=== PATIENT | male | born 1950 | race Caucasian/White ===

== ENCOUNTER 2019-05-11 00:10 | Inpatient (IN) | payer OTHER ==
[2019-05-11] VITALS (69 sets, daily range): BP systolic 49–123; BP diastolic 19–71
[~2019-05-11] VITALS: Ht 180.3 cm; Wt 78.8 kg
--- NOTE | 2019-05-11 00:20 | NUR ---
EMS STATED THAT IV IN RAC INFILTRATED. SITED IS COOL W/ MODERATE FLOOD INFILTRATION TO R LOWER ARM.
[2019-05-11 00:31] LABS: HEMATOCRIT 29.3 % (42.0-52.0); HEMOGLOBIN 9.5 gm/dL (14.0-18.0); MCH 28.8 pg (26.0-34.0); MCHC 32.3 g/dL (28.0-37.0); MCV 89.2 fL (80.0-100.0); PLATELET COUNT 208 thou/uL (150-400); RBC 3.29 mil/uL (4.50-6.00); WBC 20.2 thou/uL (4.0-11.0)
[2019-05-11 00:50] LABS: ANION GAP 13 mmol/L (7-16); BUN 33 mg/dL (7-18); CALCIUM 7.8 mg/dL (8.5-10.1); CHLORIDE 109 mmol/L (98-107); CO2 22 mmol/L (21-32); CREATININE 2.4 mg/dL (0.7-1.3); GLUCOSE 155 mg/dL (74-106); POTASSIUM 4.4 mmol/L (3.5-5.1); SODIUM 144 mmol/L (136-145)
[2019-05-11 00:58] LABS: TROPONIN-I <0.06 ng/mL (<0.06)
[2019-05-11 01:01] LABS: APTT 24.8 Seconds (24.5-32.8); INR 1.2; PROTIME 12.5 Seconds (9.3-11.4)
[2019-05-11 01:09] LABS: ABSOLUTE NEUTROPHILS 16.2 thou/uL (1.4-8.2)
--- NOTE | 2019-05-11 01:48 | NUR ---
NS running at 250 ml/hr per Dr. Vo
[2019-05-11 02:39] LABS: HEMATOCRIT 25.8 % (42.0-52.0); HEMOGLOBIN 8.4 gm/dL (14.0-18.0)
[2019-05-11 02:47] LABS: ALBUMIN 2.6 g/dL (3.4-5.0); DIRECT BILIRUBIN 0.1 mg/dL (<0.1-0.3); TOTAL BILIRUBIN 0.7 mg/dL (<0.1-1.0); TOTAL PROTEIN 5.5 g/dL (6.4-8.2)
--- NOTE | 2019-05-11 03:41 | NUR ---
ADMIT NOTE: Pt admitted to ICU room 239 from ED for GI bleed and hypotension. Alert and oriented x 4, KAUFFMAN, pupils LOU. Abdomen flat, soft, non-tender, bowel sounds hypoactive. On O2 at 2L per canula, sat 98-100%. On levophed at 10 mcg/min, SBP 80-100 with MAP > 60. Pt arrived at 0300; blood transfusion started at 0330 and progressing without complication.
[2019-05-11 06:44] LABS: CALCIUM 7.8 mg/dL (8.5-10.1); CREATININE 2.3 mg/dL (0.7-1.3); POTASSIUM 4.9 mmol/L (3.5-5.1)
--- NOTE | 2019-05-11 08:00 | EKG ---
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1950 Requested By: Rajinder Vo Order Number: [id number] MD: Adalberto Leon Measurements Intervals [place] Rate: 86 P: 69 NE: 167 QRS: -81 QRSD: 114 T: 91 QT: 399 QTc: 478 Interpretive Statements Sinus rhythm Borderline IVCD with LAD Inferior infarct, old Anterolateral infarct, age indeterminate No previous ECG available for comparison Electronically Signed On 05-11-2019 8:00:37 CDT by Adalberto Leon [email or web address] <ELECTRONICALLY SIGNED> By: Adalberto Leon MD, [facility] 05/11/19 08 1 011 Adalberto Leon MD, FACC /EPI
--- NOTE | 2019-05-11 11:37 | NUR ---
DROWSY BUT EASILY AROUSABLE, WHEN AWAKE IS ORIENTED AND HAS DENIED PAIN. VITALS STABLE AND WEANING DOWN LEVO BP TOLERATES. SMALL BLOODY EMESIS EARLY THIS MORNING. KEPT NPO. DAUGHTER AND SON CAME BY AND WERE UPDATED. PATIENT TAKEN TO GI LAB FOR EGD AT 1130 ACCOMPANIED BY GI RN AND BOTH SON AND DAUGHTER
--- NOTE | 2019-05-11 13:32 | NUR ---
BACK IN ICU AT 1300, ON THE VENT. OGT INSERTED AND CXR COMPLETED. CONSULT CALLED TO DR. JACKSON FOR VENT MANAGEMENT.
[2019-05-11 14:02] LABS: URINE BILIRUBIN NEGATIVE (Negative); URINE BLOOD 1+ (Negative); URINE CLARITY CLEAR; URINE COLOR YELLOW; URINE GLUCOSE-RANDOM* NEGATIVE (Negative); URINE KETONES NEGATIVE (Negative); URINE LEUKOCYTES-REFLEX TRACE (Negative); URINE NITRITE-REFLEX NEGATIVE (Negative); URINE PROTEIN (DIPSTICK) 1+ (Negative); URINE SPECIFIC GRAVITY 1.015 (1.005-1.035); URINE UROBILINOGEN 0.2 E.U./dl (0.2-1.0)
[2019-05-11 14:11] LABS: BACTERIA-REFLEX None Seen /HPF (None Seen); CRYSTALS None Seen /LPF (None Seen); FINE GRANULAR CASTS 0-3 Few /LPF (None Seen); HYALINE CASTS 0-3 Few /LPF (None Seen); SQUAMOUS 0-3 Few /LPF (0-3); URINE RBC 0-2 Rare /HPF (0-2)
[2019-05-11 15:06] LABS: BE(vivo) -3.5 mmol/L (-2 to +3); HCO3 21.4 mmol/L (22.0-26.0); PCO2 38.3 mmHg (35.0-45.0); PO2 240.9 mmHg (80.0-100.0); pH 7.366 (7.360-7.450); sO2 99.5 % (92.0-98.0)
--- NOTE | 2019-05-11 16:34 | NUR ---
INITIAL ASSESSMENT: Pt evaluated for d/c planning needs. Reviewed chart and spoke with nurse. Pt is currently on the ventilator. Pt has daughter and son, who were at bedside prior to intubation. Will follow up with pt/family prior to d/c.
[2019-05-12] VITALS (37 sets, daily range): BP systolic 76–143; BP diastolic 43–83
--- NOTE | 2019-05-12 05:28 | NUR ---
END OF SHIFT SUMMARY: Pt has remained stable this shift. No stool. Minimal dark reddish brown drainage from OG. Monitor sinus zach most of shift, rates 40-55. Remains sedated on propofol, which has been titrated down to 13 mcg/kg/min. Remains on levophed drip to keep MAP > 60. Levophed titrated down to 4 mcg/min this shift. Urine output remains adequate (600 cc this shift).
[2019-05-12 05:46] LABS: HEMATOCRIT 24.9 % (42.0-52.0); HEMOGLOBIN 8.3 gm/dL (14.0-18.0); MCH 29.5 pg (26.0-34.0); MCHC 33.4 g/dL (28.0-37.0); MCV 88.5 fL (80.0-100.0); RBC 2.81 mil/uL (4.50-6.00); RDW 14.6 % (10.5-14.5); WBC 15.9 thou/uL (4.0-11.0)
[2019-05-12 05:58] LABS: CREATININE 1.6 mg/dL (0.7-1.3); POTASSIUM 4.5 mmol/L (3.5-5.1)
--- NOTE | 2019-05-12 08:12 | NUR ---
PT HAD EGD YESTERDAY AND WAS INTUBATED TO PROTECT AIRWAY AND REMAINS ON VENT. DUODENAL ULCER WITH CLOT NOTED, CONCERN FOR MALIGNANCY AND OBTAINED BX AND INJECTED WITH EPI. ON PRESSORS FOR BP SUPPORT. PLAN FOR SERIAL H/H AND WILL NEED ANOTHER EGD PER GI PLAN.
[2019-05-12 09:56] LABS: HEMATOCRIT 25.9 % (42.0-52.0); HEMOGLOBIN 8.7 gm/dL (14.0-18.0)
--- NOTE | 2019-05-12 10:00 | NUR ---
Nutrition: Consider change IVFs to Clinimix PPN with 250 mL 20% lipids MWF to to meet 54-100% of needs til POC determined. Pt severely malnourished.
--- NOTE | 2019-05-12 13:59 | PATH ---
[facility] [address] [place] [address] PATHOLOGY RPT PROCEDURE Name: RICKEY TREVIZO Room #: 239-P [facility] IN M.R.#: [id number] Admission: 05/11/19 Date of : 50 Discharge: Report #: [id number] Path Case #: [id number] [facility] Accession Number: [id number] . 01 Material submitted: . duodenum - BX OF DUODENUM ULCER . 01 Clinical history: . Duodenal ulcer, hematemesis . 02 Diagnosis: Small bowel, "duodenal ulcer", biopsy: - Duodenal mucosa with moderate acute and chronic inflammation and focal ulcer with associated acute ulcer exudate. (SKM:esther; 05/12/2019) QMS/05/12/2019 . 02 Electronically signed: . Sam Sewell MD, Pathologist NPI- [id number] . 01 Gross description: . The specimen is received in formalin, labeled "Ra, Rickey, BX of duodenal ulcer", are few irregular fragments of silva soft tissue measuring 0.5 x 0.5 x 0.2 cm in aggregate. Entirely submitted in A1. (SWS; 05/11/2019) SHS/SHS . 02 Pathologist provided ICD-10: K29.80, K26.9 . 02 CPT . 337290 Specimen Comment: A courtesy copy of this report has been sent to Specimen Comment: [phone], . Specimen Comment: Report sent to / DR STONER Performed at: [address], [place], [place] [id number] MD Dillan Martinez MD Phone: [phone] Performed at: [address] [id number] MD Briseyda Camejo MD Phone: [phone]
[2019-05-12 14:20] LABS: BE(vivo) -5.9 mmol/L (-2 to +3); HCO3 18.8 mmol/L (22.0-26.0); PCO2 33.6 mmHg (35.0-45.0); PO2 79.4 mmHg (80.0-100.0); pH 7.365 (7.360-7.450); sO2 95.5 % (92.0-98.0)
[2019-05-13] VITALS (67 sets, daily range): BP systolic 51–164; BP diastolic 11–139
[2019-05-13 05:27] LABS: HEMATOCRIT 23.5 % (42.0-52.0); HEMOGLOBIN 7.8 gm/dL (14.0-18.0); MCH 29.4 pg (26.0-34.0); MCHC 33.3 g/dL (28.0-37.0); MCV 88.5 fL (80.0-100.0); RBC 2.65 mil/uL (4.50-6.00); RDW 14.6 % (10.5-14.5); WBC 21.2 thou/uL (4.0-11.0)
[2019-05-13 05:44] LABS: CALCIUM 7.7 mg/dL (8.5-10.1); CREATININE 1.1 mg/dL (0.7-1.3); POTASSIUM 4.2 mmol/L (3.5-5.1)
--- NOTE | 2019-05-13 06:20 | NUR ---
PATIENT ALERT AND ORIENTED X4, PAIN CONTROLLED WITH MEDICATION. ON 2L NASAL CANNULA, BASS PATENT AND DRAINING. ON BLOOD PRESSURE SUPPORT TO KEEP MAP ABOVE 60. NO SIGNIFICANT EVENTS OVER NIGHT. PATIENT RESTED COMFORTABLY. NO SIGNS OF ACUTE DISTRESS NOTED AT THIS TIME. WILL CONTINUE TO MONITOR.
--- NOTE | 2019-05-13 11:26 | NUR ---
VASCULAR ACCESS PLACED 5FRTLPICC FOR GI BLEED IN ICU, PLEASE SEE INSERTION NOTE FOR DETAILS
--- NOTE | 2019-05-13 11:40 | NUR ---
PT BECAME COOL , CLAMY AND DIAPHORETIC. KNOWS HIS NAME BUT PRIOR WAS TALKING WITH STAFF. NOT RESPONDING WITH NURSING STAFF. FLUIDS INFUSING. AND LEVO AT 16MG. WEAK PULSE AND BLOOD PRESSURE DROPING. FLUIDS INFUSING. CODE BUTTON CALLED AND STAFF CAME. PT STARTING VOMITING BLOOD AND CLOTS. PLACED NG TUBE WITH ICE WATER LAVAGE. AT THIS TIME. AND INTUBATION DONE PER AND ADDED EPINEPHRINE, VASOPRESSIN, VERONIKA SYNEPHRINE FOR STABILIZATION. FLUIDS INFUSING. FAMIY PRESENT. GI TOOK PT TO IR WITH STAFF. FAMILY ACCOMPANYING PT FOR SUPPORT. ONGOING NURSING SUPPORT REQUIRED AT THIS TIME. MORE BLOOD PRODUCTS ON HOLD IN THE BLOOD BANK FOR PT BLEEDING.
[2019-05-13 11:50] LABS: BE(vivo) -8.2 mmol/L (-2 to +3); HCO3 17.1 mmol/L (22.0-26.0); PCO2 33.7 mmHg (35.0-45.0); PO2 217.3 mmHg (80.0-100.0); sO2 99.4 % (92.0-98.0)
[2019-05-13 11:51] LABS: pH 7.323 (7.360-7.450)
[2019-05-13 12:22] LABS: RBC 1.59 mil/uL (4.50-6.00)
[2019-05-13 12:23] LABS: MCH 29.2 pg (26.0-34.0); MCHC 31.8 g/dL (28.0-37.0); MCV 91.6 fL (80.0-100.0); PLATELET COUNT 136 thou/uL (150-400); RDW 14.7 % (10.5-14.5); WBC 20.6 thou/uL (4.0-11.0)
[2019-05-13 12:26] LABS: HEMATOCRIT 14.6 % (42.0-52.0); HEMOGLOBIN 4.7 gm/dL (14.0-18.0)
[2019-05-13 12:33] LABS: INR 1.4; PROTIME 14.9 Seconds (9.3-11.4)
[2019-05-13 13:00] LABS: ABSOLUTE NEUTROPHILS 14.4 thou/uL (1.4-8.2); METAMYELOCYTES 1 %; PLATELET ESTIMATE NORMAL
[2019-05-13 14:53] LABS: WBC 14.1 thou/uL (4.0-11.0)
[2019-05-13 14:56] LABS: HEMATOCRIT 20.2 % (42.0-52.0); MCH 30.4 pg (26.0-34.0); RBC 2.07 mil/uL (4.50-6.00); RDW 16.2 % (10.5-14.5)
[2019-05-13 14:59] LABS: HEMOGLOBIN 6.3 gm/dL (14.0-18.0)
[2019-05-13 15:32] LABS: ABSOLUTE NEUTROPHILS 7.5 thou/uL (1.4-8.2); METAMYELOCYTES 4 %; MYELOCYTES 1 %; NUCLEATED RBCS 3 /100WBC
[2019-05-13 15:33] LABS: ANISOCYTOSIS 1+; BURR CELLS 3+; PLATELET COUNT 56 thou/uL (150-400)
[2019-05-13 16:00] LABS: HCO3 7.3 mmol/L (22.0-26.0); PCO2 39.7 mmHg (35.0-45.0); PO2 310.9 mmHg (80.0-100.0); pH 6.882 (7.360-7.450); sO2 99.3 % (92.0-98.0)
[2019-05-13 17:45] LABS: HEMATOCRIT 30.8 % (42.0-52.0); MCH 30.7 pg (26.0-34.0); MCV 93.1 fL (80.0-100.0); PLATELET COUNT 58 thou/uL (150-400); RDW 14.9 % (10.5-14.5); WBC 13.8 thou/uL (4.0-11.0)
[2019-05-13 17:46] LABS: HEMOGLOBIN 10.1 gm/dL (14.0-18.0)
[2019-05-13 18:14] LABS: INR 1.7
[2019-05-13 18:16] LABS: ABSOLUTE NEUTROPHILS 10.4 thou/uL (1.4-8.2); ANISOCYTOSIS 1+; METAMYELOCYTES 1 %; NUCLEATED RBCS 3 /100WBC; POLYCHROMASIA OCCASIONAL
[2019-05-13 18:18] LABS: APTT > 198.4 Seconds (24.5-32.8)
[2019-05-13 18:38] LABS: BE(vivo) -11.3 mmol/L (-2 to +3); HCO3 15.3 mmol/L (22.0-26.0); PCO2 37.3 mmHg (35.0-45.0); PO2 69.6 mmHg (80.0-100.0); pH 7.232 (7.360-7.450)
[2019-05-13 23:23] LABS: HEMATOCRIT 26.7 % (42.0-52.0); HEMOGLOBIN 9.2 gm/dL (14.0-18.0); MCH 30.3 pg (26.0-34.0); MCHC 34.3 g/dL (28.0-37.0); MCV 88.2 fL (80.0-100.0); PLATELET COUNT 51 thou/uL (150-400); RBC 3.03 mil/uL (4.50-6.00); RDW 14.8 % (10.5-14.5); WBC 13.1 thou/uL (4.0-11.0)
[2019-05-13 23:26] LABS: CALCIUM 6.2 mg/dL (8.5-10.1); CREATININE 1.7 mg/dL (0.7-1.3)
[2019-05-14] VITALS (95 sets, daily range): BP systolic 74–134; BP diastolic 42–76
[2019-05-14 00:01] LABS: ABSOLUTE NEUTROPHILS 11.5 thou/uL (1.4-8.2); ANISOCYTOSIS 1+; NUCLEATED RBCS 5 /100WBC; PLATELET ESTIMATE DECREASED
[2019-05-14 00:02] LABS: POIKILOCYTOSIS 1+; POLYCHROMASIA 2+
[2019-05-14 03:21] LABS: HEMATOCRIT 25.6 % (42.0-52.0); HEMOGLOBIN 8.7 gm/dL (14.0-18.0); MCH 30.2 pg (26.0-34.0); MCHC 34.1 g/dL (28.0-37.0); MCV 88.7 fL (80.0-100.0); RBC 2.89 mil/uL (4.50-6.00); RDW 14.7 % (10.5-14.5); WBC 12.5 thou/uL (4.0-11.0)
[2019-05-14 03:32] LABS: CALCIUM 6.1 mg/dL (8.5-10.1); CREATININE 1.9 mg/dL (0.7-1.3)
[2019-05-14 03:35] LABS: INR 1.4; PROTIME 14.3 Seconds (9.3-11.4)
[2019-05-14 05:29] LABS: BE(vivo) -6.2 mmol/L (-2 to +3); HCO3 19.5 mmol/L (22.0-26.0); PCO2 39.8 mmHg (35.0-45.0); sO2 96.4 % (92.0-98.0)
[2019-05-14 05:30] LABS: pH 7.309 (7.360-7.450)
--- NOTE | 2019-05-14 06:25 | NUR ---
RECEIVED REPORT AND ASSUMED PATIENT CARE AT 1900. PATIENT GIVEN 1 BAG OF FFP AND 1 BAG OF PLATELETS AT THE START OF SHIFT. PATIENT NOTED TO BE ON LEVOPHED, EPINEPHRINE, AND VASOPRESSIN. PATIENT ALSO NOTED TO BE ON PROPOFOL AND PRECEDEX. PATIENT AWAKENS EASILY TO VERBAL AND TACTILE STIMULI AND FOLLOWS COMMANDS APPROPRIATELY. FAMILY AT BEDSIDE AND UPDATED ON CARE PLAN. PATIENT HAD 2 LARGE MAROON COLORED BM'S. NOTIFIED DR. JONES AND RECEIVED ORDERS AND PARAMETERS FOR FURTHER TRANSFUSIONS OF PRBC, FFP, AND PLATELETS. PATIENT HGB IS TRENDING DOWN, BUT DID NOT REQUIRE ANY ADDITIONAL BLOOD PRODUCTS DURING THIS SHIFT. NO OTHER ACUTE EVENTS OCCURRED DURING THIS SHIFT. THE VASOPRESSORS MAINTAINED AN ADEQUATE BP AND THIS RN WAS ABLE TO TITRATE THEM DOWN.
--- NOTE | 2019-05-14 08:39 | EKG ---
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
--- NOTE | 2019-05-14 09:04 | NUR ---
With change in medical status 05/13, would now consider start TPN once pt is stable. High risk for refeeding syndrome given malnutrition. Suggest 5%AA, 15% dex to start low rate 30ml/hr, no lipids.
[2019-05-14 09:47] LABS: HEMATOCRIT 21.6 % (42.0-52.0); HEMOGLOBIN 7.5 gm/dL (14.0-18.0); MCH 30.5 pg (26.0-34.0); MCHC 34.7 g/dL (28.0-37.0); MCV 87.9 fL (80.0-100.0); RBC 2.46 mil/uL (4.50-6.00); RDW 14.9 % (10.5-14.5); WBC 11.4 thou/uL (4.0-11.0)
[2019-05-14 12:49] LABS: CREATININE 2.2 mg/dL (0.7-1.3)
[2019-05-14 12:51] LABS: CALCIUM 5.8 mg/dL (8.5-10.1)
[2019-05-14 13:16] LABS: ALBUMIN 1.5 g/dL (3.4-5.0); DIRECT BILIRUBIN 0.2 mg/dL (<0.1-0.3); TOTAL BILIRUBIN 0.4 mg/dL (<0.1-1.0); TOTAL PROTEIN 3.8 g/dL (6.4-8.2)
[2019-05-14 15:30] LABS: ABSOLUTE NEUTROPHILS 11.3 thou/uL (1.4-8.2); BASOPHILS 0.4 % (0.0-2.0); EOSINOPHILS 0.2 % (0.0-3.0); HEMATOCRIT 26.1 % (42.0-52.0); HEMOGLOBIN 8.9 gm/dL (14.0-18.0); LYMPHOCYTES 8.6 % (24.0-44.0); MCH 30.2 pg (26.0-34.0); MCV 88.8 fL (80.0-100.0); MONOCYTES 5.5 % (1.0-8.0); POLYS 85.3 % (36.0-66.0); RBC 2.94 mil/uL (4.50-6.00); RDW 15.2 % (10.5-14.5); WBC 13.3 thou/uL (4.0-11.0)
[2019-05-14 15:58] LABS: BE(vivo) -8.1 mmol/L (-2 to +3); HCO3 16.8 mmol/L (22.0-26.0); PCO2 32.3 mmHg (35.0-45.0); PO2 108.9 mmHg (80.0-100.0); pH 7.335 (7.360-7.450); sO2 97.8 % (92.0-98.0)
[2019-05-14 15:58] LABS: PLATELET COUNT 70 thou/uL (150-400)
--- NOTE | 2019-05-14 17:00 | NUR ---
PT IS AWAKE REMAINS ON THE VENT ON SEDATION OF PROPOFOL. FAMILY AT BEDSIDE FOR SUPPORT. SUCTIONED MODERSTAE CLEAR SECREATIONS. LUNGS ARE DIMINISHED. ABDOMEN IS SOFT AND FLAT BOWEL SOUNDS ARE HYPOACTIVE X4. REMAINS ON LEVO DRIP. BLOOD PRESSURE IS STABLE. CLEAN PT UP OF A BM DRARK BLACK STOOL NOTED. BEAR HUGER ON FOR TEMPERATURE TODAY. PROTONIX DRIP REMAINS ON PT. OXYGEN SATURATION IS 97 PERCENT ON THE VENT. WILL CONTINUE TO ASSESS AND MONITOR. PT STATUS PER NURSING.
[2019-05-14 21:43] LABS: HEMOGLOBIN 8.4 gm/dL (14.0-18.0); MCH 30.3 pg (26.0-34.0); MCHC 33.7 g/dL (28.0-37.0); RBC 2.78 mil/uL (4.50-6.00); RDW 15.6 % (10.5-14.5); WBC 14.8 thou/uL (4.0-11.0)
[2019-05-15] VITALS (90 sets, daily range): BP systolic 77–134; BP diastolic 42–117
[2019-05-15 06:01] LABS: HEMATOCRIT 22.6 % (42.0-52.0); HEMOGLOBIN 7.8 gm/dL (14.0-18.0); MCH 30.7 pg (26.0-34.0); MCHC 34.4 g/dL (28.0-37.0); MCV 89.3 fL (80.0-100.0); RBC 2.53 mil/uL (4.50-6.00); RDW 15.5 % (10.5-14.5); WBC 12.7 thou/uL (4.0-11.0)
[2019-05-15 06:06] LABS: ALBUMIN 1.4 g/dL (3.4-5.0); CALCIUM 6.4 mg/dL (8.5-10.1); CREATININE 2.8 mg/dL (0.7-1.3); PHOSPHORUS 2.7 mg/dL (2.5-4.9); POTASSIUM 3.7 mmol/L (3.5-5.1)
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
--- NOTE | 2019-05-15 14:35 | NUR ---
FAXED FACE SHEET TO [employer] TO HELP WITH MEDICAID APPLICATION RECEIVED CONFIRMATION.
--- NOTE | 2019-05-15 19:15 | NUR ---
Pt lightly sedated with Propofol but is responsive and able to follow commands. Medicated twice for pain this shift with adequate pain control. Maintained on the vent with no weaning today. Dr Simons did bronchoscopy at bedside this morning. Procedure was brief-see procedure report. Sinus rhythm. Levophed gtt titrated for BP support. One unit of PRBC transfused. Two dark blackish liquid stools today. Pt is NPO. Adequate urine output. One time dose of Lasix was given. Daughter at bedside much of the day. Report given to RN assuming care.
[2019-05-15 21:00] LABS: HEMATOCRIT 25.6 % (42.0-52.0); HEMOGLOBIN 8.8 gm/dL (14.0-18.0)
[2019-05-16] VITALS (87 sets, daily range): BP systolic 74–146; BP diastolic 39–79
--- NOTE | 2019-05-16 04:38 | NUR ---
ASSUMED CARE OF PT. AT 1900. PT. IS LIGHTLY SEDATED, BUT CAN STILL NOD TO Y/N QUESTIONS. HAS HAD SOME PAIN THROUGHOUT THE NIGHT. MODERATE AMOUNT OF SECRETIONS. AFEBRILE. OXYGENATION MAINTAINED WITH VENTILATOR. NSR ON MONITOR. 7 BEAT RUN OF VTACH. ADEQUATE URINARY OUTPUT. 1 BLACK/ BROWN BM SO FAR THIS SHIFT. HGB OF 8.8 AT 2030, NO BLOOD GIVEN, ON MASS TRANSFUSION PROTOCOL. TURNED Q2H, SKIN WARM, DRY, INTACT. ASSESSMENTS AND VITAL SIGNS CHARTED. CONTINUE TO FOLLOW POC. WILL CONTINUE TO MONITOR.
[2019-05-16 05:06] LABS: BE(vivo) -6.1 mmol/L (-2 to +3); HCO3 19.3 mmol/L (22.0-26.0); PCO2 37.8 mmHg (35.0-45.0); PO2 116.6 mmHg (80.0-100.0)
[2019-05-16 05:07] LABS: pH 7.327 (7.360-7.450)
[2019-05-16 05:26] LABS: HEMATOCRIT 25.2 % (42.0-52.0); HEMOGLOBIN 8.9 gm/dL (14.0-18.0); MCH 31.4 pg (26.0-34.0); MCHC 35.2 g/dL (28.0-37.0); MCV 89.2 fL (80.0-100.0); RBC 2.83 mil/uL (4.50-6.00); RDW 14.9 % (10.5-14.5); WBC 10.4 thou/uL (4.0-11.0)
[2019-05-16 05:41] LABS: ALBUMIN 1.4 g/dL (3.4-5.0); CALCIUM 6.6 mg/dL (8.5-10.1); CREATININE 3.3 mg/dL (0.7-1.3); POTASSIUM 3.2 mmol/L (3.5-5.1); TOTAL BILIRUBIN 0.7 mg/dL (<0.1-1.0); TOTAL PROTEIN 4.3 g/dL (6.4-8.2)
--- NOTE | 2019-05-16 10:51 | NUR ---
0800-Pt was light sedation status. Propofol @20mcg/kg/min. Levopad @9.09. Protonix @8mg/hr. Afebrile. Pt followed commands appropriately. Pt sqeezed this nurse's fingers. Pupils reacted briskly, equally. Pt denied pain during assessment. Soft wrist x 2. RT changed FiO2 from 40 to 30 @0740. Coarse LS. Edema on UE, LE, melanie.RSr's' (Notched QRS, narrow though) on heart monitor. BP 100s w/ Levopad. Gauthier in place. Daughter was at bedside.
[2019-05-16 18:00] LABS: HEMATOCRIT 23.8 % (42.0-52.0); HEMOGLOBIN 8.1 gm/dL (14.0-18.0); MCH 30.5 pg (26.0-34.0); MCHC 33.9 g/dL (28.0-37.0); MCV 89.9 fL (80.0-100.0); RBC 2.64 mil/uL (4.50-6.00); RDW 15.2 % (10.5-14.5); WBC 7.7 thou/uL (4.0-11.0)
--- NOTE | 2019-05-16 19:31 | NUR ---
1920-Called DITCH CLEANERHarsh re massive transfusion protocol since pt's Hgb 8.1 from 8.9. DITCH CLEANER told this nurse to monitor overnight for active bleeding and check CBC tomorrow morning. This nurse confirmed the massive transfusion protocol was held as of 05/15 from order hx.
[2019-05-17] VITALS (165 sets, daily range): BP systolic 62–141; BP diastolic 33–89
--- NOTE | 2019-05-17 04:35 | NUR ---
ASSUMED CARE OF PT. AT 1900. PT. IS LIGHTLY SEDATED WITH PROPOFOL, CAN NOD TO Y/N QUESTIONS. DENIES PAIN. VSS. NSR WITH BBB ON MONITOR. MAINTAINS OXYGENATION WITH VENTILATOR. POSSIBLE CPAP TRIAL TODAY. 1 BLACK, DARK MARROON SMALL BM. ADEQUATE URINARY OUTPUT. NO INCREASE IN EDEMA. ASSESSMENTS AND VITAL SIGNS CHARTED. MEDICATION TITRATION CHARTED. FOLLOW POC. WILL CONTINUE TO MONITOR.
[2019-05-17 05:23] LABS: HEMATOCRIT 25.7 % (42.0-52.0); MCH 31.1 pg (26.0-34.0); MCHC 35.1 g/dL (28.0-37.0); MCV 88.7 fL (80.0-100.0); PLATELET COUNT 73 thou/uL (150-400); WBC 8.3 thou/uL (4.0-11.0)
[2019-05-17 05:35] LABS: ALBUMIN 1.4 g/dL (3.4-5.0); CALCIUM 6.9 mg/dL (8.5-10.1); CREATININE 3.4 mg/dL (0.7-1.3); PHOSPHORUS 2.7 mg/dL (2.5-4.9); POTASSIUM 3.6 mmol/L (3.5-5.1)
[2019-05-17 06:14] LABS: ABSOLUTE NEUTROPHILS 7.1 thou/uL (1.4-8.2); LARGE PLATELETS OCCASIONAL; PLATELET ESTIMATE DECREASED
[2019-05-17 06:15] LABS: POLYCHROMASIA 1+
--- NOTE | 2019-05-17 09:53 | NUR ---
Pt was arousable w/ Propofol @30mcg. Followed commands appropriately. LS clear & diminished but lots of secretions were present. Suctioned. BP was running between 100s to 120s, based on the position. HR was between upper 50s and 60s. Levo @6mcg. Edema on UE was reduced a little bit. Gauthier in place. PICC on ISABEL and R groin is patent. Will continue to monitor. 0945-Pt's oral care was done. Pt's HR and BP was down to 40s and 60s. Levo was increased to 10mcg again. HR and BP was back to 50s and 110s.
[2019-05-18] VITALS (101 sets, daily range): BP systolic 76–184; BP diastolic 40–92
--- NOTE | 2019-05-18 04:17 | NUR ---
ASSUMED CAREOF PT. AT 1900. NO NEW CHANGES. VSS. MEDICATION TITRATION CHARTED. LIGHTLY SEDATED WITH PROPOFOL, CAN NOD TO Y/N QUESTIONS. NSR/1DHB ON MONITOR. MAINTAINING OXYGENATION WITH VENTILATOR. PT. READY FOR CPAP TRIAL TODAY. EDEMA UNCHANGED. TPN STARTED. 1 BLACK/BROWN BM. ADEQUATE URINARY OUTPUT. NEW OPTIFOAM APPLIED TO COCCYX. ASSESSMENTS AND VITAL SIGNS CHARTED. FOLLOW POC. WILL CONTINUE TO MONITOR.
[2019-05-18 05:26] LABS: HEMATOCRIT 26.1 % (42.0-52.0); HEMOGLOBIN 9.1 gm/dL (14.0-18.0); MCH 31.3 pg (26.0-34.0); MCHC 34.9 g/dL (28.0-37.0); MCV 89.5 fL (80.0-100.0); RBC 2.92 mil/uL (4.50-6.00); RDW 14.9 % (10.5-14.5); WBC 7.5 thou/uL (4.0-11.0)
[2019-05-18 05:57] LABS: ALBUMIN 1.3 g/dL (3.4-5.0); CALCIUM 7.1 mg/dL (8.5-10.1); CREATININE 3.2 mg/dL (0.7-1.3); PHOSPHORUS 2.7 mg/dL (2.5-4.9); POTASSIUM 3.3 mmol/L (3.5-5.1)
[2019-05-18 10:39] LABS: BE(vivo) 1.6 mmol/L (-2 to +3); HCO3 26.5 mmol/L (22.0-26.0); PCO2 42.7 mmHg (35.0-45.0); PO2 308.3 mmHg (80.0-100.0); sO2 99.7 % (92.0-98.0)
[2019-05-18 13:04] LABS: BE(vivo) 3.5 mmol/L (-2 to +3); HCO3 28.2 mmol/L (22.0-26.0); PCO2 43.4 mmHg (35.0-45.0); PO2 68.7 mmHg (80.0-100.0); sO2 94.2 % (92.0-98.0)
[2019-05-18 17:34] LABS: HEMATOCRIT 25.1 % (42.0-52.0); HEMOGLOBIN 8.6 gm/dL (14.0-18.0)
--- NOTE | 2019-05-18 18:18 | NUR ---
end of shift note. Pt extubated today at 1340. Tolorating well. Progressing towards goals. R fem central line d/cd. Titrating Levophed for MAP of 60. HBG dropped slightly to 8.[address] Remy notified. Neuro intact. Remains on Bicarb gtt but renal is seeing him.
[2019-05-19] VITALS (76 sets, daily range): BP systolic 80–183; BP diastolic 39–95
--- NOTE | 2019-05-19 04:00 | NUR ---
PT IS REFUSING DOBB SOLE PLACEMENT AT THIS TIME. WANTS TO SPEAK TO THE DOCTORS ABOUT THIS. EARLIER PT HAD A MOD AMT DARK BROWN LIQUID STOOL. WILL CONT TO MONITOR CLOSELY.
[2019-05-19 04:04] LABS: HEMATOCRIT 24.7 % (42.0-52.0); HEMOGLOBIN 8.4 gm/dL (14.0-18.0); MCH 30.5 pg (26.0-34.0); MCHC 34.1 g/dL (28.0-37.0); MCV 89.4 fL (80.0-100.0); PLATELET COUNT 154 thou/uL (150-400); RBC 2.77 mil/uL (4.50-6.00); RDW 14.8 % (10.5-14.5)
[2019-05-19 04:41] LABS: ABSOLUTE NEUTROPHILS 4.8 thou/uL (1.4-8.2); ALBUMIN 1.2 g/dL (3.4-5.0); CALCIUM 7.1 mg/dL (8.5-10.1); PHOSPHORUS 2.2 mg/dL (2.5-4.9); POTASSIUM 3.1 mmol/L (3.5-5.1)
--- NOTE | 2019-05-19 06:00 | NUR ---
PT IS AWAKE ALERT AND ORIENTED. IN GOOD SPIRITS. just wanting to have a glass of water. remains on levophed gtt at 2 mcg. sbp 120/70. TPN AT 50/HR SKIN WARM AND DRY. BATHED. REMAINS IN SINUS RHYTHM. 1400 CC UO THIS SHIFT. PT LOOKS SO MUCH BETTER THIS AM. WILL CONT TO MONITOR.
--- NOTE | 2019-05-19 08:26 | NUR ---
DR RAMSEY HERE. SPEECH EVAL ORDERED FOR TODAY.
--- NOTE | 2019-05-19 09:22 | HC ---
[facility] [place] [address] CONSULTATION Name: MYRNA TREVIZO Room #: 239-P [facility] IN M.R.#: [id number] Admission: 05/11/19 Attend Phys: Marcos Brar MD Discharge: Date of : 50 Report #: [id number] THIS REPORT FOR: //name// CC: CRESENCIO physician/PCP Marcos Brar DATE OF SERVICE: 05/14/2019 REASON FOR CONSULTATION: Acute kidney injury. REASON FOR PRESENTATION: Found down in bloody emesis and diarrhea. HISTORY OF PRESENT ILLNESS: This is obtained from the medical record as the patient is currently intubated and not able to provide me with the history. Apparently, the patient was brought to the Emergency Room with hematemesis, hematochezia of unknown duration. He reported abdominal pain. He has a remote history of stomach ulcer. Creatinine on presentation was 2.4, this has improved to 1.1; however, the patient's condition deteriorated and he developed hypotension. He had an EGD that revealed large amount of clotted blood. He was also found to have a large duodenal bulb ulcer with clot adherent to it. The patient developed hemorrhagic shock, hypotension, massive hematemesis, and was transferred to the ICU. He required an emergent angiogram with coiling of the gastroduodenal artery. Creatinine has been going up from 1.1 on 05/13/2019 to 1.9 as of this morning. He continued to require pressors, be on the hypotensive side. He was intubated. I am being consulted to manage his acute kidney injury. PAST MEDICAL HISTORY: As per the medical record as the patient is not able to provide me with the details. He carries a diagnosis of peptic ulcer disease. ALLERGIES: None. REVIEW OF SYSTEMS: Unobtainable given the patient's mental status. FAMILY HISTORY: Unobtainable given the patient's mental status. MEDICATIONS: Unavailable. PHYSICAL EXAMINATION: GENERAL: He is intubated, on the hypotensive side, blood pressure is 80/60. HEAD AND NECK: No jugular venous distention. ET tube in place. CHEST: Decreased air entry bilaterally. CARDIOVASCULAR: No rub detected. Tachycardic, on multiple pressors. ABDOMEN: Soft, unable to evaluate tenderness. LOWER EXTREMITIES: No edema. [facility] [address] [place] [address] CONSULTATION Name: MYRNA TREVIZO Room #: 239-P ADM IN M.R.#: [id number] Admission: 05/11/19 Attend Phys: Marcos Brar MD Discharge: Date of : 50 Report #: [id number] LABORATORY DATA: Reviewed. White blood cell count is 11.4, platelets is 57. Creatinine is up to 1.9, BUN is 39. ASSESSMENT, IMPRESSION, AND PLAN: 1. Acute kidney injury. 2. Hemorrhagic shock. 3. Massive upper gastrointestinal bleeding due to duodenal ulcer. 4. Post-gastroduodenal artery coiling. 5. The patient's acute kidney injury and metabolic acidosis are well explained by his current gastrointestinal bleeding. 6. Continue aggressive IV fluid resuscitation. 7. Transfusion p.r.n. 8. Watch hemoglobin. 9. Continue with the pressors. 10. He continues to make good amount of urine and we will continue to follow. No indication for dialysis. <ELECTRONICALLY SIGNED> By: Flavia Han MD 05/19/19 0922 1021 1155 Flavia Han MD /nt
--- NOTE | 2019-05-19 14:46 | NUR ---
WOUND CONSUTL; A SACRUM WOUND AND A SCROTUM WOUND WAS IDENTIFIED.BOTH WOUNDS ARE SUPERFICIAL SUPERICIAL AND CLEAN, NO S/S OF INFECTION. RECOMMENDATION; ZGUARD TO BOTH AREAS DAILY/PRN RN PRESENT
--- NOTE | 2019-05-19 15:58 | NUR ---
ASSESSMENTS AND INERVENTIONS DOCCUMENTED. PATIENT ORIENTED AND ALERT X4. PATIENT TOLERATING ICE CHIPS. SWALLOW EVALUATION DONE AND PATIENT TOLERATED THE EVALUATION. RENAL DIET STARTED PER DR. FALK. PT CAME TO WORK WITH PATIENT AND PRACTICED ROM EXERCISES. PATIENT RESTING QUIETLY WITH NO ISSUES AT THIS TIME.
[2019-05-20] VITALS (27 sets, daily range): BP systolic 94–122; BP diastolic 51–66
[2019-05-20 04:40] LABS: HEMOGLOBIN 8.7 gm/dL (14.0-18.0); MCHC 33.6 g/dL (28.0-37.0); MCV 92.3 fL (80.0-100.0); RBC 2.81 mil/uL (4.50-6.00); RDW 15.5 % (10.5-14.5); WBC 6.9 thou/uL (4.0-11.0)
[2019-05-20 04:54] LABS: ALBUMIN 1.3 g/dL (3.4-5.0); CALCIUM 7.6 mg/dL (8.5-10.1); CREATININE 2.9 mg/dL (0.7-1.3); POTASSIUM 3.5 mmol/L (3.5-5.1); TOTAL BILIRUBIN 0.3 mg/dL (<0.1-1.0)
[2019-05-20 10:06] LABS: HEMATOCRIT 25.6 % (42.0-52.0); HEMOGLOBIN 8.7 gm/dL (14.0-18.0)
--- NOTE | 2019-05-20 15:51 | NUR ---
FOLLOWING FOR DC PLANNING. CLINICAL INFO REVIEWED. WILL REMAIN IN ICU TODAY. TOOK A FEW STEPS OUT OF BED WITH P.T. TODAY AND LOOKS LIKE A GOOD CANDIDATE FOR ACUTE REHAB. SPOKE WITH PT WHO IS ALERT AND ORIENTED AND HE IS OPEN TO REHAB STAY AND AGREEABLE TO 5N IF ACCEPTED. SPOKE WITH PT'S DTR OCTAVIO BY PHONE AND SHE IS AGREEABLE TO REHAB STAY AND 5N IF ACCEPTED. PT IS OFF PRESSORS AND TPN TO BE DC'D. 5N CONSULT ORDERED.
--- NOTE | 2019-05-20 19:39 | NUR ---
END OF SHIFT NOTE. PT PROGRESSING TOWARDS GOALS. ONE LARGE BLACK BM THIS AM. VSS. PT TOOK A FEW STEPS WITH PHYSICAL THERAPY. TPN TO BE WEANED OFF THIS PM. PT EATING MOD AMTS.
--- NOTE | 2019-05-21 05:28 | NUR ---
Pt requested prn med for arthritis pain to his bilateral shoulders/knees and hips, with relief noted, he did get a bit of rest. He is moving his upper extremities better, the edema has lessened there, but continues to have BLE edema. Gauthier remains patent, draining clear yellow urine to DD, the siderails are up, the bed is in the low/locked position, and his call light is within reach. Pt asked his son to bring him some bananas/grapes, he also needs the vanilla supplement with his meal trays and more Z-guard is needed. Will continue to monitor.
[2019-05-21 05:40] LABS: ALBUMIN 1.5 g/dL (3.4-5.0); TOTAL BILIRUBIN 0.3 mg/dL (<0.1-1.0); TOTAL PROTEIN 5.5 g/dL (6.4-8.2)
[2019-05-21 05:46] LABS: ABSOLUTE NEUTROPHILS 6.1 thou/uL (1.4-8.2); BASOPHILS 0.5 % (0.0-2.0); EOSINOPHILS 1.4 % (0.0-3.0); HEMATOCRIT 26.1 % (42.0-52.0); HEMOGLOBIN 8.6 gm/dL (14.0-18.0); LYMPHOCYTES 13.3 % (24.0-44.0); MCH 30.5 pg (26.0-34.0); MCHC 32.9 g/dL (28.0-37.0); MCV 92.6 fL (80.0-100.0); MONOCYTES 5.4 % (1.0-8.0); PLATELET COUNT 250 thou/uL (150-400); POLYS 79.4 % (36.0-66.0); RBC 2.82 mil/uL (4.50-6.00); RDW 14.9 % (10.5-14.5); WBC 7.7 thou/uL (4.0-11.0)
[2019-05-21 06:11] LABS: CREATININE 0.6 mg/dL (0.7-1.3)
--- NOTE | 2019-05-21 12:39 | NUR ---
WOUND CARE F/U; THE SCROTUM IS HEALED. THE SACRUM IS ALMOST HEALED, NO S/S OF INFECTION TODAY. PATIENT IS UP IN A CHAIR AND CAN GET UP WITH HELP, PIVOT AND SIT. HE STILL NEEDS HELP TURNING IN BED. RECOMMENDATION; CONTINUE CURRENT TX RN PRESENT
--- NOTE | 2019-05-21 13:38 | NUR ---
Pt does not need renal diet, request change to regular.
--- NOTE | 2019-05-21 15:07 | NUR ---
1000-OOB TO CHAIR,WALKED ABOUT 10 STEPS.PT NEEDS MUCH DIRECTION.TAKES SHUFFLING STEPS,SAGS WHEN NOT REMINDED TO STAND UP STRAIGHT,TUCK IN BOTTOM,ETC. IN RECLYNER CHAIR W CHAIR ALARM ON,CALL BED W/IN REACH.O2 HAD TO BE APPLIED,HAD BEEN OFF ~20 MIN B/4 GETTING OOB BUT PT SOB,DROPPED SATS TO HIGH 80'S.RECOVERED FAIRLY QUICKLY.O2 LEFT AT 2L/NC.--VW 1300-UP IN CHAIR ~ 2 1/2 HRS,SOLED[place] WELL. ASSISTED BACK TO BED BY 2 (MAX ASSIST STILL) & DOES BETTER W WALKER. SETTLED FOR NAP,DTR IN AT BEDSIDE.--VW 1500-VOIDED USING URINAL. SETTLED FOR NAP.--VW
[2019-05-21 15:30] VITALS: BP 106/65
--- NOTE | 2019-05-21 16:15 | NUR ---
REFUSED BREAKFAST & LUNCH.FOOD BROUGHT IN BY .PT STILL HAS NOT EATEN.DENIES NEED TO URINATE.CALL TO VIA BEEPER ([facility] D/C'D EARLIER).TAKING FEW SIPS ONLY TODAY.NO NAUSEA SINCE THIS AM.WAITING RETURN CALL.--VW
--- NOTE | 2019-05-21 18:08 | NUR ---
Worked w P.T. this pnoon. Feeling good but extremely tired.Progressing toward goals.--vw
[2019-05-21 19:44] VITALS: BP 78/34
[2019-05-21 19:45] VITALS: BP 89/36
[2019-05-22] VITALS (8 sets, daily range): BP systolic 82–126; BP diastolic 50–78
--- NOTE | 2019-05-22 04:59 | NUR ---
Pt has been providing more of his own cares, using the urinal, feeding himself fruit that his family brought in and assisting with repositioning. VSS, his assessment is benign, the edema has been decreasing. Pt has had good urine output, (1000 ml's) no BM through this shift. The weight function on the bed did not operate corectly, so this was not completed. The bed is in the low/locked position, the call light is within reach and the sierails are up x 4. Will continue to monitor.
[2019-05-22 05:12] LABS: ALBUMIN 1.5 g/dL (3.4-5.0); CALCIUM 8.2 mg/dL (8.5-10.1); PHOSPHORUS 3.2 mg/dL (2.5-4.9); POTASSIUM 3.8 mmol/L (3.5-5.1)
[2019-05-22 05:44] LABS: HEMATOCRIT 23.5 % (42.0-52.0); HEMOGLOBIN 7.7 gm/dL (14.0-18.0); MCH 30.3 pg (26.0-34.0); MCHC 32.9 g/dL (28.0-37.0); MCV 92.2 fL (80.0-100.0); RBC 2.55 mil/uL (4.50-6.00); RDW 15.2 % (10.5-14.5); WBC 7.1 thou/uL (4.0-11.0)
[2019-05-22 05:57] LABS: CREATININE 2.6 mg/dL (0.7-1.3)
[2019-05-22 13:04] LABS: HEMATOCRIT 26.2 % (42.0-52.0); HEMOGLOBIN 8.9 gm/dL (14.0-18.0)
--- NOTE | 2019-05-22 13:49 | NUR ---
DISCHARGE NOTE: SW reviewed chart and spoke with nursing and attending physician. Pt is medically stable to discharge to 5N when a bed is available. SW confirmed with 5N administrative liaison. SW met with pt at bedside to provide update and notify of discharge. Pt is aware and agreeable. SW left voice message for pt's dtr, Carole, to provide update and notify of discharge. Provided contact number for 5N. Rehab CM to follow and assist as needed with discharge planning.
[2019-05-22] MEDS ORDERED: PANTOPRAZOLE SO40 M1 PO (14:02)
[2019-05-22] MEDS ORDERED: COLACE100 MG PO (14:02)
[2019-05-22] MEDS ORDERED: ALBUTEROL2.5 MG/0.1 INH (14:02)
[2019-05-22] MEDS ORDERED: TYLENOL325 MG PO (14:02)
--- NOTE | 2019-05-22 17:23 | NUR ---
SUMMAR: PATIENT ALERT AND ORIENTED AND VITALS STABLE. HAS DENIED PAIN. UP TO THE CHAIR WITH ASSIST WITH GAIT BELT AND WALKER. TOLERATING DIET BUT POOR APPETITE, GETS BOOST BID. VOIDING PER URINAL. TRANSFERRED TO REHAB RM 512 WITH BELONGINGS.
== END 2019-05-22 17:33 | DRG 356 ==
LOC: ER 00:10 → ICU 01:26 → EROBS 01:26 → ICU 02:47
PROVIDERS: Emergency Medicine; Hospitalist; Internal Medicine; Internal Medicine Gastroenterology; Internal Medicine Pulmonary Disease; Nurse Practitioner; Nurse Practitioner Acute Care; Pediatrics; Radiology Diagnostic Radiology; ADMIT Hospitalist
PROC: 5A1955Z Respiratory Ventilation, Greater than 96 Consecutive Hours (ICD-10-PCS; principal; 2019-05-11)
PROC: 0BH17EZ Insertion of Endotracheal Airway into Trachea, Via Natural or Artificial Opening (ICD-10-PCS; principal; 2019-05-11)
PROC: 0DB98ZX Excision of Duodenum, Via Natural or Artificial Opening Endoscopic, Diagnostic (ICD-10-PCS; principal; 2019-05-11)
PROC: 04L53DZ Occlusion of Superior Mesenteric Artery with Intraluminal Device, Percutaneous Approach (ICD-10-PCS; 2019-05-13)
PROC: 30233N1 Transfusion of Nonautologous Red Blood Cells into Peripheral Vein, Percutaneous Approach (ICD-10-PCS; 2019-05-13)
PROC: 30233R1 Transfusion of Nonautologous Platelets into Peripheral Vein, Percutaneous Approach (ICD-10-PCS; 2019-05-13)
PROC: 30233K1 Transfusion of Nonautologous Frozen Plasma into Peripheral Vein, Percutaneous Approach (ICD-10-PCS; 2019-05-13)
PROC: 06HY33Z Insertion of Infusion Device into Lower Vein, Percutaneous Approach (ICD-10-PCS; 2019-05-13)
PROC: 0DJ08ZZ Inspection of Upper Intestinal Tract, Via Natural or Artificial Opening Endoscopic (ICD-10-PCS; 2019-05-13)
PROC: 0BJ08ZZ Inspection of Tracheobronchial Tree, Via Natural or Artificial Opening Endoscopic (ICD-10-PCS; 2019-05-15)
PROC: B4141ZZ Fluoroscopy of Superior Mesenteric Artery using Low Osmolar Contrast (ICD-10-PCS; 2019-05-15)
DX: K26.4 Chronic or unspecified duodenal ulcer with hemorrhage (principal); J69.0 Pneumonitis due to inhalation of food and vomit; E43 Unspecified severe protein-calorie malnutrition; R57.8 Other shock; J96.01 Acute respiratory failure with hypoxia; N17.0 Acute kidney failure with tubular necrosis; K72.00 Acute and subacute hepatic failure without coma; D62 Acute posthemorrhagic anemia; E87.2 Acidosis; J98.11 Atelectasis; F17.210 Nicotine dependence, cigarettes, uncomplicated; M19.90 Unspecified osteoarthritis, unspecified site; K21.9 Gastro-esophageal reflux disease without esophagitis; I95.9 Hypotension, unspecified; Z79.1 Long term (current) use of non-steroidal anti-inflammatories (NSAID); Z87.11 Personal history of peptic ulcer disease; Z82.3 Family history of stroke; Z90.49 Acquired absence of other specified parts of digestive tract; Z71.6 Tobacco abuse counseling; Z72.89 Other problems related to lifestyle; Z71.41 Alcohol abuse counseling and surveillance of alcoholic
CPT/HCPCS: 10078; 10203; 27000; 85076

== ENCOUNTER 2019-05-22 12:35 | Inpatient (IN) | payer OTHER ==
[~2019-05-22] VITALS: Ht 180.3 cm; Wt 63.0 kg
[2019-05-22] MEDS ORDERED: ALBUTEROL2.5 MG/0.1 INH (14:02)
[2019-05-22] MEDS ORDERED: PANTOPRAZOLE SO40 M1 PO (14:02)
[2019-05-22] MEDS ORDERED: COLACE100 MG PO (14:02)
[2019-05-22] MEDS ORDERED: TYLENOL325 MG PO (14:02)
[2019-05-22 18:33] VITALS: BP 120/69
--- NOTE | 2019-05-22 18:35 | NUR ---
PT ARRIVED AT 1715 FROM ICU. VITALS STABLE. PT C/O LOWER BACK PAIN 3/10 AND FELT BETTER AFTER REPOSITIONING. ALERT AND ORIENTED*4, PLEASANT. HS STABLE, BRADYCARDIA (HR 55-65), EDEMA ON BLE, SCROTAL AND BUE. LS COARSE, PRODUCTIVE COUGH WITH LOOSE SECRETIONS, SATS >95% ON 3L OXYGEN VIA NASAL CANNULA. HAS SACRAL WOUND, MEPIPLEX BORDER INPLACE, DRY AND INTACT. WOUND AROUND SCROTUM, OPEN TO AIR. PICC LINE ON RIGHT UPPER REMAINS INTACT AND PATENT. PT DENIES BLOODY STOOLS TODAY, ABDOMEN REMAINS SOFT AND FLAT WITH ACTIVE BS. UP WITH 2 MIN ASSIST, GB AND WALKER AND TOLERATED WELL. Q1H VISUAL CHECKS. CALL LIGHT WITHIN REACH. FALL PRECAUTIONS IN PLACE
[2019-05-22 20:00] VITALS: BP 115/69
--- NOTE | 2019-05-23 02:07 | NUR ---
PT ALERT AND ORIENTED X 4. VOIDS ADEQUATE AMTS CLEAR YELLOW URINE PER URINAL. RIGHT PICC LINE INTACT AND PATENT. IV ANTIBIOTICS GIVEN ORDERED. 02 ON AT 2L PER NC CONT. GENERALIZED EDEMA NOTED. COCCYX REDDENED. PT DECLINED HAVING PICTURE TAKEN OF COCCYX. WOULD LIKE TO DO IT DURING THE DAY. PT DENIES PAIN OR DISCOMFORT. TURNED Q2H. PT REPOSITIONS HIMSELF ON HIS BACK AFTER TURNED. BED ALARM ON FOR SAFETY. PT APPEARS TO BE SLEEPING ON HOURLY ROUNDS.
[2019-05-23 05:53] LABS: HEMATOCRIT 23.8 % (42.0-52.0); HEMOGLOBIN 8.1 gm/dL (14.0-18.0); MCH 31.2 pg (26.0-34.0); MCV 91.8 fL (80.0-100.0); RBC 2.59 mil/uL (4.50-6.00); WBC 7.1 thou/uL (4.0-11.0)
[2019-05-23 06:02] LABS: ALBUMIN 1.7 g/dL (3.4-5.0); CALCIUM 8.1 mg/dL (8.5-10.1); CREATININE 2.4 mg/dL (0.7-1.3); PHOSPHORUS 3.3 mg/dL (2.5-4.9); POTASSIUM 3.8 mmol/L (3.5-5.1)
[2019-05-23 08:29] VITALS: BP 122/72
--- NOTE | 2019-05-23 11:06 | NUR ---
ASSUMED CARE AT 0700. PATIENT IS ALERT AND ORIENTED X4. PATIENT KAUFFMAN'S, GLUTEN SETTLING TENDER ARE EQUAL. LUNGS ARE CLEAR AND DEMINISHED. PATENT HAS 02 AT 2L PER N/C. HIS ABD IS SOFT WITH BSX4. PATIENT HAS GENERALIZED EDEMA, AND +3 SCROTAL EDEMA. PATIENT IS UP WITH 2 STAFF, GAIT BELT AND WALKER. PATIENT IS VOIDING PER URINAL [place]NE COLORED URINE. FALL AND SAFETY PROTOCOLS IN PLACE. UP IN CHAIR FOR MEALS. DENIES ANY PAIN. CONTINUES TO PROGRESS TOWARDS D/C GOALS. WILL CONTINUE TO MONITER.
[2019-05-23 20:24] VITALS: BP 124/84
--- NOTE | 2019-05-24 00:19 | NUR ---
PT ALERT AND ORIENTED X 4. VOIDING ADEQUATE AMTS YELLOW URINE PER URINAL. RIGHT PICC LINE INTACT. 02 ON AT 2L PER NC. GENERALIZED EDEMA NOTED. PT DENIES PAIN OR DISCOMFORT. BED ALARM ON FOR SAFETY. PT APPEARS TO BE SLEEPING ON HOURLY ROUNDS.
[2019-05-24 19:34] VITALS: BP 117/79
--- NOTE | 2019-05-25 03:00 | NUR ---
assumed care at approx 1900 evening 05/24. pt alert and oriented x4, appropriate and cooperative. pt voiding per urinal at bedside. pt appears to be sleeping soundly with hourly rounding checks. bed alarm on and call light in reach. will continue to monitor.
[2019-05-25 07:30] LABS: ALBUMIN 1.8 g/dL (3.4-5.0); CALCIUM 8.4 mg/dL (8.5-10.1); CREATININE 1.8 mg/dL (0.7-1.3); PHOSPHORUS 2.9 mg/dL (2.5-4.9); POTASSIUM 3.4 mmol/L (3.5-5.1)
[2019-05-25 08:00] VITALS: BP 124/70
--- NOTE | 2019-05-25 08:20 | NUR ---
chart review, pt new to [facility]. pt in bed, noted o2 4-6L/nc. pt stated felt soa, bedside nurse checking on pt as well. o2 stat 92-93%/o2nc. offered to visit later and he verbal stated it ok to visit now. intro to cm, team meeting, dcp, and hh. pt reported " independent prior to this episode, gait been little off for last 7-8 months. no medical equip, still drive, manage own medication. was taking for hip arthritis pain 2 aleve every 6 hours until my gut exploded. vision was fine before this but now right eye at bottom is not right. 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 no prescription medication and no primary dr. 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 no home oxygen. i will be going to stay with my daughter dudley when dc"/júnior. noted júnior would stop and rest after completing his thought. will cont following as needed for dc needs. assisted with investment banking associate pt up in bed for breakfast. bedside nurse in room at end of visit.
[2019-05-25 09:31] LABS: HEMATOCRIT 23.7 % (42.0-52.0); HEMOGLOBIN 7.9 gm/dL (14.0-18.0)
[2019-05-25 10:07] LABS: FOLIC ACID 6.9 ng/mL (8.6-58.9)
--- NOTE | 2019-05-25 10:08 | NUR ---
WOUND CARE FOLLOW UP; WOUNDS TO THE COCCYX AND THE SCROTUM ARE HEALED. RECONSULT IF NEED ARISES. RECOMMENDATION; D/C FROM WOUND CARE. CONTINUE ZGAURD ORDERED DISCUSSED WITH SUSANNA
--- NOTE | 2019-05-25 12:56 | NUR ---
Nutrition: Folate 6.9. REC start folate supplementation
[2019-05-25 17:55] LABS: URINE BILIRUBIN NEGATIVE (Negative); URINE BLOOD NEGATIVE (Negative); URINE CLARITY CLEAR; URINE COLOR YELLOW; URINE GLUCOSE-RANDOM* NEGATIVE (Negative); URINE KETONES NEGATIVE (Negative); URINE LEUKOCYTES-REFLEX NEGATIVE (Negative); URINE NITRITE-REFLEX NEGATIVE (Negative); URINE PROTEIN (DIPSTICK) NEGATIVE (Negative); URINE SPECIFIC GRAVITY <= 1.005 (1.005-1.035); URINE UROBILINOGEN 0.2 E.U./dl (0.2-1.0)
[2019-05-25 19:56] VITALS: BP 106/63
--- NOTE | 2019-05-25 20:18 | NUR ---
Assumed care approx. 0700 this AM. Patient ALOX4. Patient 02 increased from 2LNC to 6LNC before breakfast this AM as O2 sat was struggling to reach the 90's. Kaylee, ELECTRICIAN SUPERVISOR SUBSTATION made aware of incident, but that patient was safely titrated back down to 3LNC and tolerating well. Lung sounds were clear. No BM today, but order to watch for black stools passed on to maintenance technician 2nd shift nurse. Per Arnulfo from wound care, keep zguard application on bottom. Patient up x1 with a walker. Right upper TL PICC still present. Right hand and bilat ankle edema present. Bowel sounds active. Chronic pain in hips noted this AM at breakfast time. Tylenol given for pain relief and tolerated well. Patient progressing toward plan of care.
--- NOTE | 2019-05-25 23:36 | NUR ---
PT ASSESSMENT DONE AND VSS. MEDS GIVEN ORDERED. FALL PRECAUTIONS IN PLACE. PT SLEEPING. WILL CONTINUE TO MONITOR.
[2019-05-26 06:10] LABS: HEMATOCRIT 23.4 % (42.0-52.0); HEMOGLOBIN 7.7 gm/dL (14.0-18.0); MCH 30.2 pg (26.0-34.0); MCHC 33.1 g/dL (28.0-37.0); MCV 91.2 fL (80.0-100.0); RBC 2.56 mil/uL (4.50-6.00); RDW 14.8 % (10.5-14.5); WBC 5.6 thou/uL (4.0-11.0)
[2019-05-26 06:32] LABS: ALBUMIN 1.8 g/dL (3.4-5.0); DIRECT BILIRUBIN < 0.1 mg/dL (<0.1-0.3); SGOT 26 U/L (15-37); SGPT 38 U/L (30-65); TOTAL BILIRUBIN 0.3 mg/dL (<0.1-1.0); TOTAL PROTEIN 5.5 g/dL (6.4-8.2)
[2019-05-26 08:00] VITALS: BP 97/58
--- NOTE | 2019-05-26 09:30 | NUR ---
PT UP IN CHAIR THIS AM. PT COMPLAINS OF PAIN TO ARM JOINTS OF 5 ON 1-10 SCALE. PT HAS COUGH WITH CLEAR SPUTUM, PT STATED HE WAS COUGHING UP YELLOW. PT OXYGEN ON 4L NC, LUNGS CLEAR AND DIMINISHED TO RLL. PT STATED HE IS WORRIED ABOUT HIS ARMS SWELLING. PT HAS EDEMA TO RT HAND AND PEDALS, NON-PITTING. PT STATED THAT HIS PAIN TO HIS ARMS GETS WORSE THE DAY GOES ALONG.
--- NOTE | 2019-05-26 09:31 | NUR ---
ADM TYLENOL 325MG 2 TABS PO FOR PAIN TO ARMS BILATERALY.
[2019-05-26 10:36] LABS: CREATININE 1.8 mg/dL (0.7-1.3)
--- NOTE | 2019-05-26 13:53 | NUR ---
team meeting, recommendation: st eval and tx. re team with dc 20th , hh ( ot, pt, st and nursing), fww and o2 stat and ex prior to dc to see if going to need home oxygen. will need pcp set up, daughter to assist with founding pcp
--- NOTE | 2019-05-26 17:56 | NUR ---
PT STATED HE WAS SOA AFTER EATING DINNER. PT WANTED HEAD LOWERED A LITTLE BIT, OXYGEN IS STILL RUNNING AT 4L NC. PT STATED LOWERING HIS HEAD FELT BETTER.
[2019-05-26 19:44] VITALS: BP 113/73
--- NOTE | 2019-05-27 00:53 | NUR ---
PT ALERT AND ORIENTED X 4. VOIDS WITHOUT DIFFICULTY PER URINAL. GENERALIZED EDEMA NOTED. 02 ON AT 4L PER NC CONT. PT C/O PAIN IN HIS HIPS. TYLENOL GIVEN AT START OF SHIFT. BED ALARM ON FOR SAFETY. PT APPEARS TO BE SLEEPING ON HOURLY ROUNDS.
[2019-05-27 06:56] LABS: ALBUMIN 1.9 g/dL (3.4-5.0); CREATININE 1.7 mg/dL (0.7-1.3); PHOSPHORUS 2.5 mg/dL (2.5-4.9); POTASSIUM 3.4 mmol/L (3.5-5.1)
[2019-05-27 07:34] VITALS: BP 112/60
--- NOTE | 2019-05-27 14:07 | NUR ---
ASSUMED CARE AT 0700. PATIENT IS ALERT AND ORIENTED X4. PATIENT KAUFFMAN'S, PRODUCTION PLANNING MANAGER ARE EQUAL. LUNGS ARE CLEAR AND DEMINISHED. PATIENT CONTINUES ON 02 AT 2L PER N/C. ABD IS SOFT WITH BSX4. REQUESTED LAXATIVE FOR NO BM. PATIENT VOIDING LYNNE COLORED URINE PER URINAL. UP IN CHAIR FOR MEALS. FALL AND SAFETY PROTOCOLS IN PLACE. C/O H.A. PAIN. MEDICATED WITH PRN PAIN MED. CONTINUES TO PROGRESS TOWARDS D/C GOALS. WILL CONTINUE TO MONITER.
[2019-05-27 19:30] VITALS: BP 110/72
--- NOTE | 2019-05-28 00:55 | NUR ---
PT ALERT AND ORIENTED X 4. AMB TO BR WITH WALKER AND ASSIST X 1 WITHOUT DIFFICULTY. GENERALIZED EDEMA MUCH IMPROVED. VOIDING LARGE AMTS CLEAR YELLOW URINE PER URINAL. PT C/O PAIN IN HIS SHOULDERS. TYLENOL GIVEN AT HS. BED ALARM ON FOR SAFETY. PT APPEARS TO BE SLEEPING ON HOURLY ROUNDS.
[2019-05-28 06:32] LABS: HEMOGLOBIN 7.7 gm/dL (14.0-18.0); MCH 30.6 pg (26.0-34.0); MCHC 33.5 g/dL (28.0-37.0); MCV 91.4 fL (80.0-100.0); RBC 2.51 mil/uL (4.50-6.00); RDW 14.7 % (10.5-14.5); WBC 5.3 thou/uL (4.0-11.0)
[2019-05-28 06:55] LABS: ALBUMIN 1.9 g/dL (3.4-5.0); CALCIUM 8.3 mg/dL (8.5-10.1); CREATININE 1.8 mg/dL (0.7-1.3); PHOSPHORUS 2.2 mg/dL (2.5-4.9); POTASSIUM 3.3 mmol/L (3.5-5.1)
--- NOTE | 2019-05-28 08:01 | NUR ---
ASSUMED CARE AT 0700. PAITENT IS ALERT AND ORIENTED X4. PATIENT SAMSON CHILD CARE LEADER ARE EQUAL. LUNGS ARE DEMINISHED. 02 AT 4L PER N/C. ABD IS SOFT WITH BSX4. VOIDING LYNNE COLORED URINE PER URINAL. FALL AND SAFETY PROTOCOLS IN PLACE. C/O HIP PAIN . MEDICATED WITH PRN PAIN MED. CONTINUES TO PROGESS TOWARDS D/C GOALS. WILL CONTINIUE TO MONITER.
[2019-05-28 09:09] VITALS: BP 123/70
--- NOTE | 2019-05-28 10:01 | NUR ---
Followup: Improvement in nutrition status-eating 75-100% meals and 75-100% of nutrition supplements. Started on folate as previously recommended by RD. No new wt, on lasix for anasarca. Change nutrition status to low risk with appropriate nutrition interventions in place.
--- NOTE | 2019-05-28 10:51 | NUR ---
cm visited with pt rt hh at dc, when goes to stay with his daughter dudley, provided him with another hh list choice, " i will look at it thank you"/pt. noted in was still on o2 per nc. will cont following as needed for dc needs.
--- NOTE | 2019-05-28 16:45 | H ---
[facility] [place] [address] HISTORY AND PHYSICAL Name: MYRNA TREVIZO Room #: 512-P ADM IN M.R.#: [id number] Admission: 05/22/19 ������������������ Attend Phys: Jourdan Taylor MD Discharge: ������������������ Date of : 50 Report #: [id number] THIS REPORT FOR: //name// CC: Jourdan Taylor [facility] physician/PCP DATE OF SERVICE: 05/22/2019 POSTADMISSION PHYSICIAN EVALUATION HISTORY OF PRESENT ILLNESS: Please see the full admission history and physical. I agree with the findings as noted. The patient was seen by me later yesterday. He has been admitted now for acute in-hospital inpatient rehabilitation. He had been in the intensive care unit and had a course complicated with hemorrhagic shock secondary to severe upper GI bleed with coiling. He had bilateral pneumonia, acute respiratory failure, status post ventilator placement, shock liver, acute on chronic kidney disease. He was noted to have significant weakness with critical illness myopathy with his prolonged ICU stay. He has been admitted for acute in-hospital inpatient rehabilitation. The patient was examined late yesterday and agree with the findings as noted in the dictated history and physical. ASSESSMENT AND PLAN: 1. Critical illness myopathy. 2. Hemorrhagic shock secondary to severe upper gastrointestinal bleed, status post coiling 05/06/2019. 3. Acute respiratory failure, status post vent, extubated on 05/18/2019. 4. Bilateral pneumonia. 5. Shock liver. 6. Acute blood loss anemia, status post multiple transfusions. 7. A 50-pound weight loss, unknown etiology. 8. Protein-calorie malnutrition. 9. Tobacco with ETOH abuse. PLAN: From a post-admission physician evaluation perspective, there are no relevant changes since the preadmission screening. Please see the above prior and current medical and functional conditions and comorbidities. Please see the patient's previous and current functional status. He apparently has weakness of bilateral lower extremities and has difficulty lifting them, antigravity off the bed. He is needing max assist sit to stand with max assist to take a couple of short steps. Upper body strength is a grade 3+/5. He is a thin, slender white male and is on 2 liters nasal cannula. Premorbidly, he had not been on any O2 and has been ambulatory without adaptive device after the second floor of his apartment without an elevator. As far as risk of complications, the patient has multiple medical comorbidities [address] [address] HISTORY AND PHYSICAL Name: MYRNA TREVIZO Room #: 512-P [facility] IN M.R.#: [id number] Admission: 05/22/19 ������������������ Attend Phys: Jourdan Taylor MD Discharge: ������������������ Date of : 50 Report #: [id number] as noted above. Initial plan of care involves the interdisciplinary acute inpatient rehabilitation program with goal maximizing his functional independence, so he can hopefully return back to his prior living situation. Measurable functional goals would be for him to become modified independent with transfers, mobility and ADLs. PROGNOSIS: Reasonably good with estimated length of stay probably at least 2-1/2 to 3 weeks pending progress. Potential barriers would include his multiple medical comorbidities and decreased functional status. The patient meets diagnostic criteria for an acute in-hospital inpatient rehabilitation stay. He meets the medical necessity criteria. We will have the marketing regional consultant physicians continue to follow. He does have the tolerance for therapies and has appropriate discharge goals back to the home setting. ��������������������������������������������� <ELECTRONICALLY SIGNED> ���������������������������������������� By: Jourdan Taylor MD ��������������������������������������������� 05/28/19 [id number] [id number] Jourdan Taylor MD /nt
[2019-05-28 20:43] VITALS: BP 97/60
--- NOTE | 2019-05-29 02:53 | NUR ---
ASSUMED CARE OF PT @1900 PT ASSESSED AT START OF SHIFT WITH C/O PAIN IN BOTH SHOULDERS PAIN MEDS GIVEN SEE EMAR. USES URINAL AT BEDSIDE FOR THE NIGHT. LIGHT YELLOW URINE NOTED. WILL CONT WITH POC TILL EOS
[2019-05-29 05:54] LABS: CALCIUM 8.4 mg/dL (8.5-10.1); CREATININE 1.7 mg/dL (0.7-1.3); POTASSIUM 3.7 mmol/L (3.5-5.1)
[2019-05-29 10:06] VITALS: BP 111/73
--- NOTE | 2019-05-29 16:32 | NUR ---
ASSUMED CARES AT 0700. PT AWAKE, ALERT AND ORIENTED*4. DENIES PAIN. HR 50'S-60'S, ALL OTHER VITALS REMAIN STABLE. LS COARSE, ON 4L OXYGEN WITH SATS >95%, RECEIVING BREATHING TREATMENTS SCHEDULED. ABDOMEN REMAINS SOFT AND FLAT, BS ACTIVE*4, NO BLOODY STOOLS NOTED OR REPORTED, DENIES N&V. PT C/O FATIGUE AND SOB WITH ACTIVITY, ACTIVITY SPACED OUT. UP WITH 1 MIN ASSIST, GB AND WALKER. Q1H VISUAL CHECKS. CALL LIGHT WITHIN REACH. FALL PRECAUTIONS IN PLACE
[2019-05-29 19:39] VITALS: BP 109/69
--- NOTE | 2019-05-30 05:20 | NUR ---
PATIENT ALERT AND ORIENTED X4. DENIES PAIN. NO COMPLAINTS OR PROBLEMS. SLEPT MOST OF THE NIGHT.
[2019-05-30 05:43] LABS: HEMATOCRIT 23.3 % (42.0-52.0); HEMOGLOBIN 7.8 gm/dL (14.0-18.0); MCH 30.8 pg (26.0-34.0); MCHC 33.4 g/dL (28.0-37.0); MCV 92.2 fL (80.0-100.0); RBC 2.52 mil/uL (4.50-6.00); WBC 4.7 thou/uL (4.0-11.0)
[2019-05-30 08:15] VITALS: BP 99/66
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
[2019-05-30 15:00] VITALS: BP 104/69; BP 108/72; BP 98/65
[2019-05-30 15:51] LABS: URINE BILIRUBIN NEGATIVE (Negative); URINE BLOOD NEGATIVE (Negative); URINE CLARITY CLEAR; URINE COLOR YELLOW; URINE GLUCOSE-RANDOM* NEGATIVE (Negative); URINE KETONES NEGATIVE (Negative); URINE LEUKOCYTES NEGATIVE (Negative); URINE NITRITE NEGATIVE (Negative); URINE PROTEIN (DIPSTICK) NEGATIVE (Negative); URINE UROBILINOGEN 0.2 E.U./dl (0.2-1.0)
--- NOTE | 2019-05-30 16:23 | NUR ---
ASSUMED CARES AT 0700. PT AWAKE, ALERT AND ORIENTED*4. DENIES PAIN. C/O FATIGUE, WEAKNESS AND LOW ENERGY. UNABLE TO TOLERATE THERAPIES TODAY AND SEEMED PHYSICALLY WEAK. HOSPITALIST NOTIFIED AND ORDERS RECEIVED, 250CC NS IV BOLUS ADMINISTERED PER ORDER. PIV STARTED ON RIGHT FOREARM WITH 20GAUGE NEEDLE, PATENT. ORTHOSTATIC BP OBTAINED (SEE VITALS). PT C/O DIZZINESS WHEN STANDING. EKG ORDERED, SHOWED NSR. UA COLLECTED PER ORDER. AWAITING TO COLLECT STOOL SAMPLE FOR OCCULT BLOOD. UP WITH 1 MIN ASSIST, GB AND WALKER. Q1H VISUAL CHECKS. CALL LIGHT WITHIN REACH. FALL PRECAUTIONS IN PLACE
[2019-05-30 20:31] VITALS: BP 97/52
--- NOTE | 2019-05-31 02:27 | NUR ---
PT ALERT AND ORIENTED X 4. AMB TO BR WITH WALKER AND ASSIST X 1. NO STOOL YET TONIGHT. PASSING FLATUS. 02 ON AT 4L PER NC CONT. PT DENIES PAIN OR DISCOMFORT. BED ALARM ON FOR SAFETY. PT CHECKED ON HOURLY ROUNDS.
[2019-05-31 08:30] VITALS: BP 102/70
--- NOTE | 2019-05-31 13:33 | NUR ---
ASSUMED CARE OF PT AT 0715. PT IS A&OX4. IS ON 4L OF . DENIES PAIN AT THIS TIME. IS STABLE. IS UP WITH 1 ASSIST GB, WALKER. FALL PRECAUTION & HOURLY ROUNDING MAINTAINED. Z-GUARD APPLIED TO BUTTOCKS. PT WAS GIVEN PRUNE JUICE, STOOL SOFTNER AND SENNA FOR CONSTIPATION. STOOL SAMPLE COLLECTED. LABS & VITALS REVIEWED. PT IS IN ROOM, IN BED. CALL LIGHT WITHIN REACH. WILL CONTNUE TO MONITOR.
--- NOTE | 2019-05-31 14:23 | EKG ---
[address] [address] ELECTROCARDIOGRAM REPORT Name: MYRNA TREVIZO Room #: 512-P ADM IN M.R.#: [id number] ������������������ Admission: 05/22/19 ������������������ Attend Phys: Jourdna Taylor MD Discharge: ������������������ Date of : 50 Report #: [id number] ����������������������������������������������������������������� [id number] THIS REPORT FOR: //name// [facility] Test Date: 2019-05-30 Test Time: 14:54:25 Pat Name: MYRNA TREVIZO Department: Room: 512 P Gender: M Second Helper: [email or web address] : 1950 Requested By: Ana M Poon Order Number: [id number] MD: Adalberto Leon Measurements Intervals [place] Rate: 68 P: 66 VA: 172 QRS: -72 QRSD: 98 T: 73 QT: 421 QTc: 448 Interpretive Statements Sinus rhythm Ventricular premature complex Inferior infarct, old Anterior infarct, old Compared to ECG 05/13/2019 13:09:23 Ventricular premature complex(es) now present Sinus tachycardia no longer present Electronically Signed On 05-31-2019 14:23:07 CDT by Adalberto Leon [email or web address] ��������������������������������������������� <ELECTRONICALLY SIGNED> ���������������������������������������� By: Adalberto Leon MD, [facility] ��������������������������������������������� 05/31/19 1423 1454 1454 Adalberto Leon MD, [facility] /EPI
--- NOTE | 2019-05-31 14:45 | NUR ---
ASSUMED CARE OF PT AT 1300. PT IS A&OX4 AND VITAL SIGNS ARE STABLE. LENORA SAMPLE COLLECTED AND SENT TO LAB, RESULTS NEGATIVE. IV RIGHT FOREARM SL, DRESSING C/D/I, FLUSHING APPROPRATELY. Z-GUARD APPLIED TO COCCYX, TURNED Q2H WTIH CUES. PT ON 4L O2 VIA NC TO MAINTAIN SPO2 >90%. FALL PRECAUTIONS IN PLACE AND NURSING WILL CONTINUE TO MONITOR.
[2019-05-31 19:15] VITALS: BP 99/66
--- NOTE | 2019-06-01 02:45 | NUR ---
PT ASSESSMENT DONE AND VSS. MED GIVEN ORDERED AND WELL TOLERATED. FALL PRECAUTIONS IN PLACE. SLEEPING WELL. WILL CONTINUE TO MONITOR.
[2019-06-01 10:14] VITALS: BP 83/54
[2019-06-01 11:00] VITALS: BP 78/46
--- NOTE | 2019-06-01 12:30 | NUR ---
cm revisited with pt at bedside, noted still requiring o2 per nc. education on hh at dc and list of choice that was let with pt last week " havent talked it over with daughter dudley, go ahead it wont make difference"/nicolette. cm spoke with dudley via phone call rt hh " will talk with dad again and let you know tomorrow who to send it to"/dudley.
[2019-06-01 13:09] VITALS: BP 84/52
--- NOTE | 2019-06-01 15:39 | NUR ---
ASSUMED CARES AT 0700. PT AWKE, ALERT AND ORIENTED*4. C/O RONY SHOULDERS AND HANDS PAIN, TYLENOL ADMINISTERED PRN. PT HYPOTENSIVE THIS AM (SBP IN 70'S), HOSPITALIST NOTIFIED AND ORDERS RECEIVED, IV FLUIDS ADMINISTERED (BOLUS) THEN MAINTENANCE AT 125ML/HR. BP RECHECKED 96/62. PT PARTICIPATED IN THERAPY TODAY AND TOLERATED WELL, REMAINS ON 4L WITH SATS >92%. BREATHING TREATMENTS PROVIDED PRN. Q1H VISUAL CHECKS. CALL LIGHT WITHIN REACH. FALL PRECAUTIONS IN PLACE
[2019-06-01 16:26] VITALS: BP 95/57
[2019-06-01 19:48] VITALS: BP 101/55
--- NOTE | 2019-06-02 00:52 | NUR ---
PT ALERT AND ORIENTED X 4. IV INFUSING ORDERED. VOIDING ADEQUATE AMTS CLEAR YELLOW URINE PER URINAL. 02 ON AT 4L PER NC CONT. BP 101/55 AT START OF SHIFT. PT DENIES PAIN OR DISCOMFORT. BED ALARM ON FOR SAFETY. PT HAS BEEN AWAKE MUCH OF NIGHT WATCHING TV.
[2019-06-02 05:51] LABS: HEMOGLOBIN 7.5 gm/dL (14.0-18.0); MCH 30.3 pg (26.0-34.0); MCHC 32.7 g/dL (28.0-37.0); MCV 92.6 fL (80.0-100.0); RBC 2.48 mil/uL (4.50-6.00); RDW 14.4 % (10.5-14.5); WBC 4.5 thou/uL (4.0-11.0)
[2019-06-02 06:18] LABS: ALBUMIN 2.1 g/dL (3.4-5.0); CALCIUM 8.4 mg/dL (8.5-10.1); CREATININE 1.3 mg/dL (0.7-1.3); POTASSIUM 4.1 mmol/L (3.5-5.1); TOTAL BILIRUBIN 0.2 mg/dL (<0.1-1.0)
[2019-06-02 08:00] VITALS: BP 98/62
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
--- NOTE | 2019-06-02 14:18 | NUR ---
CALM, COOPERATIVE. ALAN ADDS MIDODRINE TO REGIMEN FOR PERSISTANT HYPOTENSION. BP101/55, 98/62, AND 98/58. USES URINAL APPROPRIATELY. WILL CONTINUE TO FOLLOW CLOSELY.
--- NOTE | 2019-06-02 16:01 | NUR ---
I have reviewed the documentation by MOISES DALY from 06/02/19 to 06/02/19 and I concur with it KARLOS JONES, PT, DPT
--- NOTE | 2019-06-02 16:03 | NUR ---
dp sent hh referral to [facility] , patient will need pt, ot, st and possible nursing, dc home on 06/08
[2019-06-02 19:25] VITALS: BP 108/52
--- NOTE | 2019-06-03 03:12 | NUR ---
PATIENT Assessed and is alert x 4. skin warm and dry. resp even and unlabored. CAME IN WITH LOW HEMOGLOBIN FROM NSAIDS. TAKING DIET WELL. VOIDS PER URINAL. 02 AT 4LNC. REMAINS A FALL RISK. HAS A RED BOTTOM AND STAFF USES ZEQUARD ON IT. REPOSITIONS Q 2 HOURS AND PRN. VOIDS PER URINAL. GETS SOA WHEN UP AD SIDNEY TO BATHROOM AND ACTIVITY. ON 4LNC. BP HAS BEEN LOW AND DR STARTED NEW MED TO INCREASE BP. IV SITE HEALTHY IN RIGHT FA WITH NS INFUSING AT 125 CC HOUR. BARRIER CREAM APPLIED TO COCCYX AREA THROUGHTOUT THE NIGHT, PATIENT HAS URINALY FREQUENCY . UP WITH MINIMUN ASSIST OF 1 PERSON TO BATHROOM. CONT PLAN OF CARE. DENIES ANY PAIN.
[2019-06-03 07:37] VITALS: BP 107/65
--- NOTE | 2019-06-03 15:16 | 2DMMODE ---
[facility] [address] [place] [address] 2 D/M-MODE ECHOCARDIOGRAM Name: MYRNA TREVIZO Room #: 512-P ADM IN M.R.#: [id number] ������������� Admission: 05/22/19 ������������� Attend Phys: Jourdan Taylor, Discharge: ��� ������������� ��� Date of : 50 �������������������� �� Report #: [id number] �������� ��������������������������������������������[id number] THIS REPORT FOR: //name// APPROVED REPORT Study performed: 06/03/2019 13:05:01 EXAM: Comprehensive 2D, Doppler, and color-flow Echocardiogram Patient Location: Bedside Room #: 512 Status: routine BSA: 1.93 HR: 58 bpm BP: 107/65 mmHg Rhythm: Bradycardia Other Information Study Quality: Adequate Indications Hypotension Echo Enhancing Agent Indication: Rule out thrombus Agent(s) / Amount(s) Used: Optison 4 cc 2D Dimensions RVDd: 33.33 mm IVSd: 10.73 (7-11mm) LVOT Diam: 22.55 (18-24mm) LVDd: 47.42 mm PWd: 10.18 (7-11mm) Ascending Ao: 30.26 (22-36mm) LVDs: 32.89 (25-40mm) Aortic Root: 36.53 mm IVC: 21.00 mm Volumes Left Atrial Volume (Systole) Single Plane 4CH: 47.57 mL Single Plane 2CH: 33.65 mL LA ESV Index: 25.00 mL/m2 Aortic Valve AoV Peak Anthony.: 1.26 m/s AO Peak Gr.: 6.31 mmHg LVOT Max P.01 mmHg LVOT Max V: 1.23 m/s LANDON Vmax: 3.89 cm2 [facility] [address] [place] [address] 2 D/M-MODE ECHOCARDIOGRAM Name: SANTHOSHMYRNA Room #: 512-P [facility] IN .R.#: [id number] ������������� Admission: 05/22/19 ������������� Attend Phys: Jourdan Taylor, Discharge: ��� ������������� ��� Date of : 50 �������������������� �� Report #: [id number] �������� ��������������������������������������������[id number] Mitral Valve E/A Ratio: 1.2 MV Decel. Time: 273.98 ms MV E Max Anthony.: 0.98 m/s MV A Anthony.: 0.79 m/s MV PHT: 79.45 ms IVRT: 83.04 ms Pulmonary Valve PV Peak Anthony.: 1.12 m/s PV Peak Gr.: 5.04 mmHg Pulmonary Vein P Vein S: 0.62 m/s P Vein A: 0.22 m/s P Vein D: 0.49 m/s P Vein A Dur.: 115.3 msec P Vein S/D Ratio: 1.27 Tricuspid Valve TR Peak Anthony.: 2.73 m/s TR Peak Gr.: 29.87 mmHg PA Pressure: 40.00 mmHg Left Ventricle The left ventricle is normal size. There is akinesis in the apical wall. There is normal left ventricular wall thickness. The left ventricular systolic function is normal. The left ventricular ejection fraction is within the normal range. No left ventricular thrombus noted. A false tendon is noted (normal variant). LVEF is 55-60%. The left ventricular diastolic function is normal. Right Ventricle The right ventricle is normal size. The right ventricular systolic function is normal. Atria The left atrium size is normal. The right atrium size is normal. Aortic Valve The aortic valve is normal in structure. No aortic regurgitation is present. There is no aortic valvular stenosis. Mitral Valve The mitral valve is normal in structure. Trace mitral regurgitation. No evidence of mitral valve stenosis. Tricuspid Valve [facility] [address] [place] [address] 2 D/M-MODE ECHOCARDIOGRAM Name: MYRNA TREVIZO Room #: 512-P [facility] IN M.R.#: [id number] ������������� Admission: 05/22/19 ������������� Attend Phys: Jourdan Taylor, Discharge: ��� ������������� ��� Date of : 50 �������������������� �� Report #: [id number] �������� ��������������������������������������������[id number] The tricuspid valve is normal in structure. There is trace to mild tricuspid regurgitation. Estimated PAP 40 mmHg. There is mild-moderate pulmonary hypertension. Pulmonic Valve The pulmonary valve is normal in structure. There is no pulmonic valvular regurgitation. Great Vessels The aortic root is normal in size. IVC is dilated and collapses >50% with inspiration. Pericardium There is no pericardial effusion. <Conclusion> The left ventricle is normal size. LVEF is 55-60%. There is akinesis in the apical wall. No left ventricular thrombus noted. A false tendon is noted (normal variant). The aortic valve is normal in structure. The mitral valve is normal in structure. Trace mitral regurgitation. The tricuspid valve is normal in structure. There is trace to mild tricuspid regurgitation. Estimated PAP 40 mmHg. There is mild-moderate pulmonary hypertension. The pulmonary valve is normal in structure. There is no pericardial effusion. ��������������������������������������������� <ELECTRONICALLY SIGNED> ���������������������������������������� By: Ayad Silva MD ��������������������������������������������� 06/03/19 1516 [id number] [id number] Ayad Silva MD /INF
[2019-06-03 18:18] VITALS: BP 100/67
[2019-06-03 20:35] VITALS: BP 114/65
--- NOTE | 2019-06-03 20:37 | NUR ---
PATIENT ALERT AND ORIENTED AND COOPERATIVE WIHT POC. DAUGHTER STOPPED TO VISIT LYNN TODAY. CONTINUES TO HAVE LOW BP'S AND CONTINUES ON IV FLUIDS AND MIDODRINE.
--- NOTE | 2019-06-04 05:32 | NUR ---
PATIENT ALERT AND ORIENTED X4. IV PATENT IN RFA OF NS AT 70/HR. DENIES PAIN. SLEPT MOST OF NIGHT,
[2019-06-04 08:00] VITALS: BP 109/68
[2019-06-04 08:16] VITALS: BP 109/68
--- NOTE | 2019-06-04 11:28 | PLAN ---
[facility] [address] [place] [address] REHAB UNIT PLAN OF CARE Name: MYRNA TREVIZO Room #: 512-P ADM IN M.R.#: [id number] Admission: 05/22/19 ������������������ Attend Phys: Jourdan Taylor MD Discharge: ������������������ Date of : 50 Report #: [id number] THIS REPORT FOR: //name// CC: Jourdan Taylor [facility] physician/PCP DATE OF SERVICE: 05/25/2019 PROGRESS NOTE/OVERALL PLAN OF CARE SUBJECTIVE: The patient is seen back today in followup. He is in no distress. Last recorded temperature 97.8, pulse 74, respirations 20, blood pressure 117/79. He is working in therapies with transfers at a mod assist level. Gait is min assist 20 feet with a front-wheeled walker. Lower body dressing is max assist. He is on oxygen currently 3 liters. He has significant proximal weakness with difficulty with sit to stand transfers, lifting his lower extremities. ASSESSMENT: 1. Critical illness myopathy. 2. Hemorrhagic shock secondary to severe upper gastrointestinal bleed, status post coiling, 05/06/2019. 3. Acute respiratory failure, status post mechanical ventilation with extubation on 05/18/2019. 4. Bilateral pneumonia. 5. Shock liver. 6. Acute blood loss anemia with multiple transfusions. 7. A 50-pound weight loss, unknown etiology. 8. Protein-calorie malnutrition. 9. History of tobacco or alcohol abuse. PLAN: The overall plan of care is based on the preadmission screen, post-admission physician evaluation and information garnered from therapy assessments. 1. Estimated length of stay is probably going to be at least 2 weeks, potentially more as indicated. 2. Medical prognosis is reasonably good. 3. Anticipated interventions includes the interdisciplinary acute inpatient rehabilitation program. 4. Anticipated functional outcomes would be for the patient to become modified independent with transfers, mobility, ADLs, so that he can hopefully return back to his prior living situation. 5. Discharge destination would be back to the home setting where he lives alone. He does have a flight of stairs up there without an elevator. 6. Expected therapy by discipline includes PT and OT 1 and 1-1/2 hours per day each five days a week throughout the duration of the acute inpatient rehabilitation stay. ADDENDUM: [facility] [address] [place] [address] REHAB UNIT PLAN OF CARE Name: MYRNA TREVIZO Room #: 512-P ADM IN M.R.#: [id number] Admission: 05/22/19 ������������������ Attend Phys: Jourdan Taylor MD Discharge: ������������������ Date of : 50 Report #: [id number] Speech therapy has been added to assess swallow and cognition. So the overall plan of care will include PT, OT and speech 1 hour per day each five days a week throughout the duration of the acute inpatient rehabilitation stay. We will need to see how he does from a cognitive perspective as well as his swallowing. ��������������������������������������������� <ELECTRONICALLY SIGNED> ���������������������������������������� By: Jourdan Taylor MD ��������������������������������������������� 06/04/19 1128 [id number] [id number] Jourdan Taylor MD /ETHEL
--- NOTE | 2019-06-04 12:28 | NUR ---
DISCHARGE PLANNING. PATIENT TO DISCHARGE TO HOME WITH SERVICES ONCE MEDICALLY READY. PATIENT WILL NEED WALKER FOR HOME USE. CLINICALS AND RX FAXED TO [facility], FOR WALKER NEEDS. CALL PLACED TO KIT TO NOTIFY.
--- NOTE | 2019-06-04 13:06 | NUR ---
Nutrition: pt seen per followup. Continues to eat well, 75-100% of meals. Ensure is ordered BID but pt has not received lately. Will investigate. Wishes to resume BID, always drank 75-100%. No longer on lasix. No weight since 05/22. REC obtain new weight. Low nutrition risk.
--- NOTE | 2019-06-04 15:29 | NUR ---
ASSUMED CARES AT 0700. PT AWAKE, ALERT AND ORIENTED*4. C/O NECK TO LOWER BACK PAIN THIS AM, TYLENOL ADMINISTERED ORDERED. BP 109/68 THIS AM, MIDODRINE ADMINISTERED ORDERED. NS ON HOLD PER HOSPITALIST. ALL OTHER VITALS REMAIN STABLE. LS CLEAR, SATS >95% ON 4L OXYGEN VIA NC, PT RECEIVING BREATHING RX NEEDED. ABDOMEN SOFT AND ROUND WITH ACTIVE BS, LAST BM 06/01, STOOL SOFTENORS ADMINISTERED, NO RESULT YET. CONTINUES TO HAVE BLE EDEMA, NIKITA HOLES IN PLACE, EXTREMITIES ELEVATED. PT UP WITH 1 MIN ASSIST, GB AND WALKER AND TOLERATED WELL. Q1H VISUAL CHECKS. CALL LIGHT WITHIN REACH
--- NOTE | 2019-06-04 17:14 | NUR ---
moni set up pcp dr Pedraza on 06/09/19 at 1400 arrive 15min early for paper work. cm passed on information to his daughter dudley, also his walker from [facility] emergency department might be brought today or tomorrow prior to dc home early next week. he is still needed o2 and will check closer to dc if requires for home use and [facility] emergency department will be notified.
[2019-06-04 19:27] VITALS: BP 126/73; BP 129/77
[2019-06-05 05:24] LABS: HEMATOCRIT 21.9 % (42.0-52.0); HEMOGLOBIN 7.1 gm/dL (14.0-18.0)
--- NOTE | 2019-06-05 16:57 | NUR ---
PT ALERT AND ORIENTED TIMES FOUR. VSS, 100%4L. PT DENIES PAIN/SOA THIS SHIFT. PT WORKED WELL WITH PT/OT. FAMILY AT BEDSIDE TODAY. PT SLOWLY PROGRESSING TOWRADS POC GOALS.
[2019-06-05 19:55] VITALS: BP 133/75
--- NOTE | 2019-06-06 03:01 | NUR ---
ASSUMED CARES AT 1900. PT ALERT AND ORIENTED*4. DENIES PAIN AT THIS TIME. VITALS REMAIN STABLE. PT ON RA WITH SATS >94, SOB NOTED WITH EXERCION BUT PT RECOVERS FAST. UP TO THE BATHROOM WITH 1 MIN ASSIST, GB AND WALKER AND TOLERATED WELL. VOIDING PER URINAL THROUGH THE NOC. Q1H VISUAL CHECKS. CALL LIGHT WITHIN REACH. FALL PRECAUTIONS IN PLACE
[2019-06-06 05:20] VITALS: BP 123/53
[2019-06-06 07:49] VITALS: BP 138/86
[2019-06-06 14:45] VITALS: BP 122/89
--- NOTE | 2019-06-06 14:46 | NUR ---
ASSUMED CARES AT 0700. REPORTS SLEPT GOOD LAST NIGHT. VSS ON RA. SAT 96% ON RA THIS AM. ALERT AND ORIENTED X4. C/O BACK AND ALL EXTREMETIES SORE FROM ARTHRITIS. RATED PAIN 7/10 PRN TYLNOL AND MORNING MEDS GIVEN. DENIES PAIN NOW. DENIES N/V,SOB. SAT 92% ON RA NOW. PT TOOK MEDS WITH THIN LIQUID WITHOUT PROBLEM. PT HAS POOR APPETITE. ENCOURAGED PT TO GO DINNING ROOM TO EAT. PT UP TO DINNING ROOM AND ATE 75% OF HIS LUNCH. DENIES PAIN NOW. B/P HAS BEEN GOOD WITH MIDODRINE TID. B/P 122/80 HR 66 AT THIS MOMENT. PT HAS HX OF CONSTIPATION. LAXATIVE GIVEN DAILY AND REPORT BM HAS BEEN REGULARLY. REPORTS HAD SOFT BM THIS AM. REASSESSMENT PER CHART. BUTTOCKS SORE IS BETTER. APPLIED ZGUARD, ENCOURAGED PT TO LAY ON THE SIDE. PT HAS BEEN ABLE TO MOVE IN BED INDEPENDENTLY WITHOUT DIFFICULTY.CONTINUES TO HAVE BLE WITH MILD EDEMA, NIKITA HOLES IN PLACE, EXTREMITIES ELEVATED. PT UP WITH 1 MIN ASSIST, GB AND WALKER AND TOLERATED WELL. Q1H VISUAL CHECKS. CALL LIGHT WITHIN REACH. OFFERED SUPPORTIVE CARE. ENCOURAGED PT TO VOICE HIS NEEDS. RESTING IN BED AT THIS MOMENT. WILL CONTINUE TO MONITOR.
[2019-06-06 19:12] VITALS: BP 107/64
[2019-06-07 05:19] LABS: HEMATOCRIT 23.1 % (42.0-52.0); HEMOGLOBIN 7.8 gm/dL (14.0-18.0); MCH 30.3 pg (26.0-34.0); MCHC 33.7 g/dL (28.0-37.0); MCV 89.9 fL (80.0-100.0); RBC 2.57 mil/uL (4.50-6.00); RDW 14.1 % (10.5-14.5); WBC 3.8 thou/uL (4.0-11.0)
--- NOTE | 2019-06-07 05:45 | NUR ---
1899-Report received from day shift nurse and care assumed. Rickey's daughter visited in evening, he is A/O x 3/4. He c.o. back and bilateral arms and legs pain and Tylenol given which was effective. He had a large loose bowel movement and refused HS Docusate Sodium. He was continent and ambulated with stand-by assist with walker well. The bowel movement color was not observed (for signs of blood). He slept well this nite, NIKITA hose removed, SCD's in place. Saline lock patent in Rt. forearm.
[2019-06-07 05:51] LABS: ALBUMIN 2.4 g/dL (3.4-5.0); CREATININE 1.1 mg/dL (0.7-1.3); MAGNESIUM 1.8 mg/dL (1.8-2.4); PHOSPHORUS 3.5 mg/dL (2.5-4.9); POTASSIUM 3.6 mmol/L (3.5-5.1)
[2019-06-07 08:00] VITALS: BP 107/67
--- NOTE | 2019-06-07 14:43 | NUR ---
ASSUMED CARE AT 0700, SHIFT ASSESSMENT DONE, MEDS GIVEN, VSS. DENIES ANY PAIN, NAUSEA, VOMITING. ROOM AIR, NO SKIN ISSUES. WILL CONTINUE TO ASSESS AND ASSIST WITH ADLs NEEDED.
[2019-06-07 20:00] VITALS: BP 117/70
--- NOTE | 2019-06-08 03:12 | NUR ---
ASSUMED CARE FROM DAY SHIFT PT RESTING IN BED NO CONCERNS VOICED, DISCUSSED PLAN OF CARE AND AGREEABLE, DICUSSED PLAN OF CARE AND AGREEABLE. PO MEDICATION TAKEN, RESTED WELL THROUGHOUT HOURLY ROUNDS WILL REPORT CHANGES AND ABNORMAL FINDINGS.
[2019-06-08 07:45] VITALS: BP 110/60
--- NOTE | 2019-06-08 09:50 | NUR ---
pt was not tested by rt over the weekend for his o2 stat and exercise and will be tested today. pt fww from [facility] already delivered to pt at bedside. per pt daughter dudley will be here around 1300. pt going to be staying with his daughter at [address] [facility] [address]. hh with [facility].
[2019-06-08] MEDS ORDERED: FOLIC ACID1 MG PO (11:07)
[2019-06-08] MEDS ORDERED: MIDODRINE HCL 55 M1 PO (11:07)
[2019-06-08] MEDS ORDERED: ALBUTEROL2.5 MG/0.1 INH (11:07)
[2019-06-08] MEDS ORDERED: PULMICORT0.5 MG/22 INH (11:07)
[2019-06-08] MEDS ORDERED: PANTOPRAZOLE SO40 M1 PO (11:07)
[2019-06-08] MEDS ORDERED: NEBULIZER MISCELL (11:08)
--- NOTE | 2019-06-08 12:00 | NUR ---
ASSUMED CARES AT 0700. PT SAID HE IS READY TO GO HOME. DAUGHTER WILL PICK HIM UP AT 1PM. REPORTS SLEPT GOOD LAST NIGHT. VSS ON RA. SAT 96% ON RA THIS AM. ALERT AND ORIENTED X4. C/O BACK AND ALL EXTREMETIES SORE FROM ARTHRITIS. RATED PAIN 7/10 PRN TYLNOL WITH MORNING MEDS GIVEN. DENIES PAIN NOW. DENIES N/V,SOB. REASSESMENT PER CHART. LAST BM WAS YESTERDAY. OT GAVE PT A SHOWER THIS AM. NOTIFIED ALAN ABOUT PT'S DISCHARGE. DISCHARGE MEDS DONE. GI CAME TO SEE PT AND WANTS PT TO FOLLOW UP WITHIN 2-3 WEEKS AFTER DISCHARGE. HGB IS 7.8 THIS AM, WAS 7.1 LAST SAT. APPETITE IS GETTING BETTER. URINATE ADEQUATE AMOUNT PER URINAL. UP WITH SBA WITH A WALKER. OFFERED SUPPORTIVE CARE. ENCOURAGED PT TO VOICE HIS NEEDS. CONTINUES TO HAVE BLE WITH MILD EDEMA, NIKITA HOLES IN PLACE, EXTREMITIES ELEVATED. PT UP WITH 1 MIN ASSIST, GB AND WALKER AND TOLERATED WELL. Q1H VISUAL CHECKS. CALL LIGHT WITHIN REACH. WILL CONTINUE TO MONITOR.
[2019-06-08 12:05] VITALS: BP 110/60
--- NOTE | 2019-06-08 12:41 | NUR ---
Patient dc home today, patient will have HH through [facility]. DP faxed paperwork to [facility] and called to let them know patient dc, and orders were sent.
[2019-06-08 13:08] VITALS: BP 110/60
== END 2019-06-08 13:09 | disposition home health service (06) | DRG 91 ==
LOC: TBACV 14:31 → ENTRNSPT 06-08 12:50 → EDTRNSPTSTS 06-08 12:55
PROVIDERS: Hospitalist; Internal Medicine; Internal Medicine Gastroenterology; Nurse Practitioner; Nurse Practitioner Family; ADMIT Physical Medicine & Rehabilitation
DX: G72.81 Critical illness myopathy (principal); K72.00 Acute and subacute hepatic failure without coma; N17.0 Acute kidney failure with tubular necrosis; J96.01 Acute respiratory failure with hypoxia; J69.0 Pneumonitis due to inhalation of food and vomit; R57.8 Other shock; K26.4 Chronic or unspecified duodenal ulcer with hemorrhage; E43 Unspecified severe protein-calorie malnutrition; D62 Acute posthemorrhagic anemia; Z68.1 Body mass index [BMI] 19.9 or less, adult; R41.0 Disorientation, unspecified; F10.10 Alcohol abuse, uncomplicated; N18.9 Chronic kidney disease, unspecified; R53.81 Other malaise; F41.9 Anxiety disorder, unspecified; Z60.2 Problems related to living alone; E87.6 Hypokalemia; R60.1 Generalized edema; E53.8 Deficiency of other specified B group vitamins; N40.1 Benign prostatic hyperplasia with lower urinary tract symptoms; R39.15 Urgency of urination; R13.10 Dysphagia, unspecified; Z71.6 Tobacco abuse counseling; Z72.0 Tobacco use
CPT/HCPCS: 10112

== ENCOUNTER → 2019-07-20 | Outpatient (CLI) | payer OTHER ==
[~2019-07-20] VITALS: Ht 180.3 cm; Wt 56.2 kg
[~2019-07-20] MED LIST: ALBUTEROL2.5 MG/0.1 INH; COLACE100 MG PO; FLOMAX0.4 MG PO; FOLIC ACID1 MG PO; MIDODRINE HCL 55 M1 PO; NEBULIZER MISCELL; PANTOPRAZOLE SO40 M1 PO; PULMICORT0.5 MG/22 INH; TYLENOL EXTRA500 MG PO; TYLENOL325 MG PO
== END | disposition home or self-care (01) ==
LOC: GI 08:04
DX: K26.7 Chronic duodenal ulcer without hemorrhage or perforation (principal); M19.90 Unspecified osteoarthritis, unspecified site; Z87.19 Personal history of other diseases of the digestive system; Z98.890 Other specified postprocedural states; Z88.8 Allergy status to other drugs, medicaments and biological substances; Z90.49 Acquired absence of other specified parts of digestive tract; Z87.891 Personal history of nicotine dependence; Z79.899 Other long term (current) drug therapy
CPT/HCPCS: 62110; 62900

== ENCOUNTER 2021-10-31 15:44 | Inpatient (IN) | payer OTHER ==
[~2021-10-31] VITALS: Ht 180.3 cm; Wt 65.3 kg
[2021-10-31 15:52] VITALS: BP 112/77
[2021-10-31 17:23] LABS: ABSOLUTE NEUTROPHILS 7.6 thou/uL (1.4-8.2); BASOPHILS 0.6 % (0.0-2.0); EOSINOPHILS 0.6 % (0.0-3.0); HEMATOCRIT 42.1 % (42.0-52.0); HEMOGLOBIN 14.1 gm/dL (14.0-18.0); LYMPHOCYTES 11.4 % (24.0-44.0); MCH 34.4 pg (26.0-34.0); MCHC 33.6 g/dL (28.0-37.0); MCV 102.4 fL (80.0-100.0); PLATELET COUNT 189 thou/uL (150-400); POLYS 80.4 % (36.0-66.0); RBC 4.11 mil/uL (4.50-6.00); RDW 13.9 % (10.5-14.5); WBC 9.5 thou/uL (4.0-11.0)
[2021-10-31 17:35] LABS: CALCIUM 9.4 mg/dL (8.5-10.1)
[2021-10-31 17:41] LABS: ALBUMIN 3.5 g/dL (3.4-5.0); TOTAL BILIRUBIN 0.7 mg/dL (0.2-1.0); TOTAL PROTEIN 7.6 g/dL (6.4-8.2)
[2021-11-01 00:43] LABS: CHOLESTEROL 171 mg/dL (<200); HDL CHOLESTEROL 67 mg/dL (>40); LDL CHOLESTEROL 91 mg/dL (<100); TC:HDL 2.6 Ratio (Not establshd); TRIGLYCERIDE 65 mg/dL (<150); VLDL 13 mg/dL (<40)
[2021-11-01 00:49] LABS: SERUM ASSESSMENT Clear
[2021-11-01 09:22] VITALS: BP 104/74
--- NOTE | 2021-11-01 14:22 | NUR ---
PT ADMITTED RELATED TO PERIORBITAL CELLULITIS, FACIAL CELLULITIS. CM REVIEWED CHART AND SPOKE WITH CARE TEAM. CM CALLED AND SPOKE WITH PT OVER THE PHONE THIS DAY. PT APPEARED TO BE A&O X4. CM ROLE INTRODUCED. PT INDICATED THAT HE RESIDES ALONE IN AN APARTMENT WITH NO STEPS. PT INDICATED HE HAS A FWW AND A CME FOR USE AT HOME AND HE INDICATED THAT HE USES BOTH HIS GAIT IS OFF. CM ASKED IF PT HAD HH OR OP HX AND PT INDICATED NO. CM ASKED IF PT WOULD BE RECEPTIVE TO HH IF RECOMMENDED UPON DC AND PT STATED HE DIDN'T THINK SO. PT INDICATED DR. JAVED HOSKINS IS HIS PCP. PT INDICATED HE HAS ARITHRITIC PAIN 7-8 AND HE WOULD LIKE TO HAVE THAT ADDRESSED AND THAT DR. HOSKINS HAS STATED HE WOULDNT' PERSCRIBE ANYTHING FOR IT. CM ENCOURAGED PT TO DISCUSS WITH HOSPITALIST. PT INDICATED HE ANTICIPATES RETURNING HOME ONCE MEDICALLY STABLE. PT IS ON IV ROCEPHIN AND VANC. ENT CONSULTED. CM FOLLOWING REGARDING POSSIBLE DC NEEDS.
[2021-11-01 19:02] VITALS: BP 99/74
[2021-11-01 19:40] VITALS: BP 129/81
[2021-11-02 04:09] VITALS: BP 117/79
--- NOTE | 2021-11-02 04:12 | NUR ---
Arrived from ER around 193. Requested pain med for right eye pain and stated he also has arthritis. Hydrocodone given with good relief. Erythema nd swelling on right eye and under left eye. Benadryl given for itching with some relief. Voided per urinal.
[2021-11-02 07:06] VITALS: BP 107/78
--- NOTE | 2021-11-02 08:04 | HC ---
[facility] [place] [address] CONSULTATION Name: MYRNA TREVIZO Room #: 358-P ADM IN M.R.#: [id number] Admission: 10/31/21 Attend Phys: Dex Luis DO Discharge: Date of : 50 Report #: [id number] THIS REPORT FOR: cc: Suleiman Pedraza James A. DO Barry, Joseph W. MD ~ DATE OF SERVICE: 11/01/2021 INFECTIOUS DISEASE CONSULTATION ATTENDING PHYSICIAN: Dr. Luis. REASON FOR EVALUATION: We will evaluate the patient for periorbital cellulitis. HISTORY OF PRESENT ILLNESS: Chart reviewed. The patient examined. This is a 71-year-old gentleman who presented to the Emergency Room on the day of admission with complaints of 4-day history of pain, swelling associated with his right cheek extending to the periorbital site. Onset was noted to be a small red papular type lesion, which he woke up with, has had significant pain and discomfort as well as itching. He did squeeze it and was able to extrude some purulent bloody type discharge. He did gain some improvement for a short period of time. It is not clear if he had any significant systemic signs or symptoms in terms of fevers, chills. Appetite was satisfactory. No pulmonary or gastrointestinal related complaints. On initial evaluation, lactic acid 0.9. Did undergo CT imaging, which showed an area of possible abscess, right malar area. Blood cultures collected at time of admission are negative thus far. He was empirically started on antibiotics with ceftriaxone and vancomycin. He notes he is improved from point of admission. ALLERGIES: None. CURRENT MEDICATIONS: Include ceftriaxone, famotidine, vancomycin, hydrocodone. PAST MEDICAL HISTORY: History of arthritis, gastrointestinal hemorrhage. In addition to that, has history of BPH, hyperlipidemia, previous cholecystectomy, tonsillectomy, adenoidectomy. SOCIAL HISTORY: Former smoker, occasional ethanol, no illicit drug use. FAMILY HISTORY: Noncontributory. REVIEW OF SYSTEMS: Unremarkable. PHYSICAL EXAMINATION: GENERAL: He is a pleasant, alert, cooperative. He is generally lucid, mild to moderate distress. [address] [address] CONSULTATION Name: MYRNA TREVIZO Room #: 358-P [facility] IN M.R.#: [id number] Admission: 10/31/21 Attend Phys: Dex Luis DO Discharge: Date of : 50 Report #: [id number] VITAL SIGNS: Temperature 98.5, pulse 72, respirations 16, blood pressure 102/62. SKIN: Warm, dry, no rashes. HEENT: Normocephalic. Extraocular muscles intact. He does have right-sided periorbital edema. He is able to open his eyes to some extent. There is no passive opening. There are no areas of injection or conjunctivitis. It is not overtly tender. There is no evident purulence or matting from the site. He does have what appears to be a subcutaneous superficial fluctuant area, suspect focal abscess. Oropharynx, only 2 remaining teeth are on the right bottom side. There is no overt significant inflammation noted in the maxillary site on the right. LUNGS: Diminished breath sounds. HEART: Regular. I do not appreciate a murmur. ABDOMEN: Soft, nontender. GENITOURINARY AND RECTAL: Deferred. LABORATORY DATA: As described above. Blood cultures negative thus far. Coronavirus testing was negative. CT of the facial bones shows soft tissue swelling, possible small fluid collection or mass in the right malar region overlying the right maxillary sinus extending superiorly along the right nose and inferior orbit medially, it is preseptal, low density suggesting abscess. No intraorbital abnormality. Mandibular bony lucencies suggest dental infection and dental abscess. Lactic acid of 0.9. Electrolytes: Sodium 135, potassium 4.0, chloride 102, bicarbonate is 28, anion gap of 5, BUN and creatinine 16 and 1.0. LFTs unremarkable. Albumin of 35, total protein of 7.6. Estimated GFR 74. CBC: White count of 9.5, H and H 14.1 and 42.1, platelets of 189, MCV of 102.4. ASSESSMENT AND PLAN: Preseptal cellulitis, right periorbital maxillary site. Certainly, it would favor staphylococcus or streptococcus etiology. I think this is secondary to a dental process. We will continue current therapy and cover again staphylococcus and streptococcus, utilize some warm moist heat, ideally to draw it out, go ahead and check screening for MRSA surveillance as well. If able to collect sample, would send it for culture. Introduce incentive spirometry. <ELECTRONICALLY SIGNED> By: Sukumar Prather MD 11/02/21 [id number] Sukumar Prather MD /nt
--- NOTE | 2021-11-02 15:35 | NUR ---
PER LIZZY MEDINA INITIAL ASSESSMENT: CAROL spoke with nursing and attending physician. Pt was admitted from home due to periorbital cellulitis. ENT and ID consulted. Pt is on IV abx. CAROL spoke with pt via phone. Introduced role of CAROL. Pt appears to be alert/orientated. Pt states he lives at home alone in an apt. Pt states he has both a cane and walker to use as needed. 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 No stairs to navigate. No hx of services or post-acute placement. Pt's PCP is Dr. Suleiman Pedraza. Pt's dtr, Carole, and son, Axel, are supportive and involved in pt's care. Therapy evals ordered to assist with recommendations for discharge. Plan is for pt to discharge home when medically stable. CAROL is following to assist as needed with discharge planning. HILARIA Joel
[2021-11-02 16:15] VITALS: BP 107/72
[2021-11-02 20:11] VITALS: BP 118/78
[2021-11-03 05:20] VITALS: BP 110/72
--- NOTE | 2021-11-03 07:38 | NUR ---
Patient making progress towards outcome goals. Vital signs stable. Good pain control with Hydrocodone. Right periorbital cellulitis draining pus. Warm moist comresses helping pus to drain.
[2021-11-03 09:08] VITALS: BP 105/78
[2021-11-03 09:12] LABS: ABSOLUTE NEUTROPHILS 5.4 thou/uL (1.4-8.2); BASOPHILS 0.4 % (0.0-2.0); EOSINOPHILS 1.6 % (0.0-3.0); HEMATOCRIT 36.3 % (42.0-52.0); HEMOGLOBIN 12.2 gm/dL (14.0-18.0); LYMPHOCYTES 16.6 % (24.0-44.0); MCH 34.4 pg (26.0-34.0); MCHC 33.6 g/dL (28.0-37.0); MCV 102.3 fL (80.0-100.0); MONOCYTES 8.4 % (1.0-8.0); PLATELET COUNT 225 thou/uL (150-400); RBC 3.55 mil/uL (4.50-6.00); RDW 13.5 % (10.5-14.5); WBC 7.5 thou/uL (4.0-11.0)
[2021-11-03 09:24] LABS: ALBUMIN 2.8 g/dL (3.4-5.0); CALCIUM 9.1 mg/dL (8.5-10.1); CREATININE 0.9 mg/dL (0.7-1.3); POTASSIUM 3.5 mmol/L (3.5-5.1); TOTAL BILIRUBIN 0.5 mg/dL (0.2-1.0); TOTAL PROTEIN 6.9 g/dL (6.4-8.2)
--- NOTE | 2021-11-03 14:39 | NUR ---
CAROL reviewed chart and spoke with nursing and attending physician. Pt is progressing towards goals for discharge. Pt remains on IV abx. Possible weekend discharge. CAROL met with pt at bedside to discuss discharge plan. Pt declined HH referral. Pt states he has enough help and assistance at home between his children and financial foundations representative. SW encouraged pt to contact his PCP after discharge to coordinate HH if needed. CAROL is following to assist should needs arise.
[2021-11-03 16:03] VITALS: BP 107/73
[2021-11-03 19:47] VITALS: BP 94/61
--- NOTE | 2021-11-04 02:40 | NUR ---
PROGRESS PT A/O X4. UP WITH WALKER AND SBA. VOIDING PER URINAL AT BEDSIDE. RIGHT EYE SWOLLEN AND WATERY ON INITIAL ASSESSMENT. PT MUST HAVE RUBBED HIS EYE IN HIS SLEEP BECAUSE AT MIDNIGHT IT WAS BLEEDING FROM A SCRATCH BELOW LOWER EYELID. CLEANSED DRIED BLOOD WITH NORMAL SALINE AND BLEEDING SLOWED. IV TO LF INFILTRATED AND 22 G INSERTED IN RF WITHOUT DIFFICULTY. IV ANTIBIOTICS ADMINISTERED ORDERED. WARM PACKS PRN TO RIGHT EYE PT STATES IT HELPS RELIEVE THE ITCHING. BENEDRYL 25 MG GIVEN PO AND HYDROCODONE FOR ARTHRITIC PAIN GIVEN WITH EFFECT PT SLEPT AFTER MEDS.
[2021-11-04 04:02] VITALS: BP 114/78
[2021-11-04 07:33] VITALS: BP 118/70
[2021-11-04 15:14] VITALS: BP 106/68
[2021-11-04 19:00] VITALS: BP 104/70
[2021-11-05 04:24] VITALS: BP 143/92
[2021-11-05 07:07] VITALS: BP 123/84
[2021-11-05 15:42] VITALS: BP 119/78
[2021-11-05 19:30] VITALS: BP 101/62
[2021-11-06 03:15] VITALS: BP 126/75
--- NOTE | 2021-11-06 06:38 | NUR ---
PT MAKING PROGRESS TOWARD GOALS. PT REPORTS GOOD RELIEF FROM PAIN MEDICATION. STATES HE HAS ARTHRITIS IS HIS JOINTS THAT REACHES 7/10. AFTER TAKING ONE LORTAB HE REPORTS HIS PAIN WILL SOMETIMES DECREASE TO A 2-3/10 AND WILL ALLOW HIM TO SLEEP FOR A FEW HOURS OVER NIGHT.
[2021-11-06 07:24] VITALS: BP 136/87
[2021-11-06] MEDS ORDERED: MINOCYCLINE 5050 M1 PO (12:34)
[2021-11-06] MEDS ORDERED: GENTAMICIN SULF15 GM TOP (12:34)
[2021-11-06] MEDS ORDERED: HYDROCODON-ACE1 EAC7 PO (12:34)
[2021-11-06 13:00] VITALS: BP 136/87
--- NOTE | 2021-11-06 13:06 | NUR ---
RN ASSUMED PT'S CARE AT 0700AM,PT IS A&OX4, PT'S VS ARE STABLE, PT'S FACIAL CELLULITIS HAVE IMPROVED, PT'S PAIN HAS CONTROLLED, PT HAS LAST DOSE IV ABX, RN HAS RECEIVED ORDER TO DC PT TO HOME TODAY.
--- NOTE | 2021-11-06 14:02 | NUR ---
DISCHARGE NOTE: SW reviewed chart and spoke with nursing and attending physician. Pt is medically stable for discharge home today. Orders written for HH services. SW met with pt at bedside to discuss discharge plan. Pt is aware of discharge orders and is agreeable with plan. SW offered to arrange HH services. Pt declined offer and states he will have enough help provided by his family. SW encouraged pt to contact his PCP (Dr. Pedraza) after d/c to arrange HH services if needed. Pt verbalized understanding. Pt's family to provide transportation home. SW updated nursing. No SW discharge needs identified at this time. SW is following to assist as needed with discharge planning.
--- NOTE | 2021-11-06 15:08 | NUR ---
PT AND PT'S DAUGHTER UNDERSTAND DC TEACHING WELL , PT 'S DAUGHTER SAFE AND VAULT SERVICE MECHANIC PT TO HOME At 1500pm.
--- NOTE | 2021-11-10 11:32 | HC ---
[facility] [place] [address] CONSULTATION Name: MYRNA TREVIZO Room #: 358-P [facility] M.R.#: [id number] Admission: 10/31/21 Attend Phys: Dex Luis DO Discharge: 11/06/21 Date of : 50 Report #: [id number] THIS REPORT FOR: cc: Suleiman Pedraza James A. DO Williams, Carson MD ~ DATE OF SERVICE: 11/01/2021 REASON FOR CONSULTATION: Right facial swelling, possible periorbital cellulitis. PAST MEDICAL HISTORY: Please see H and P by Emergency Room physician. HISTORY OF PRESENT ILLNESS: The patient is a 71-year-old male who presented to [facility] with right facial swelling after reportedly trying to pick a pimple on this side of the face several days prior. He was noted to have significant swelling of the right cheek. He underwent CT scan examination, which revealed a small fluid collection in the nasomaxillary junction that was also having a small fluid within the preseptal area of the lower eyelid with no discrete fluid collection. This was representing periorbital cellulitis, preseptal, and a consultation was called for that reason. In speaking with the patient, he does have a history of other subcutaneous abscesses and cyst in the past that have become infected. He reports that the right side of his face is uncomfortable and red and tender. He has been started on antibiotics at this time. He denies any double vision or blurry vision. He denies any difficulty moving his eye. He only reports right facial swelling and discomfort. PHYSICAL EXAMINATION: GENERAL: No acute distress. Alert and oriented x 3. NEUROLOGIC: Cranial nerves 2-12 intact bilaterally. HEENT: Right facial edema and erythema of the right medial cheek with a small fluctuant fluid collection and overlying scab just lateral to the nasomaxillary junction. Right lower eyelid with mild edema and erythema. Right pupillary reflex intact. Extraocular movements intact bilaterally. IMAGING: CT scan examination of the maxillofacial structures reveals a small fluid collection and swelling of the right medial cheek and lower eyelid. ASSESSMENT AND PLAN: The patient is a 71-year-old male with right facial swelling and preseptal orbital cellulitis. He currently is being managed appropriately with IV antibiotics and allowed to cool this area off for several days and allow any remnant fluid collection to better declare itself. This may be drained easily as an outpatient in my office. They may discharge the patient on oral antibiotics. I recommend clindamycin 300 four times per day for a total of 10 days[place] [address] CONSULTATION Name: MYRNA TREVIZO Room #: 358-P [facility] M.R.#: [id number] Admission: 10/31/21 Attend Phys: Dex Luis DO Discharge: 11/06/21 Date of : 50 Report #: [id number] additional inpatient care that is necessary for this patient. He may follow up with me within several days after discharge if there is a remnant fluid collection needing attention. <ELECTRONICALLY SIGNED> By: Dave Iqbal MD 11/10/21 [id number] Dave Iqbal MD /nt
== END 2021-11-06 15:15 | disposition home or self-care (01) | DRG 603 ==
LOC: ER 15:44 → EROBS 19:42 → 3W 19:42 → EROBS 19:43 → 3W 11-01 19:29
PROVIDERS: Emergency Medicine; Nurse Practitioner Family; Specialist; ADMIT Pediatrics; ATTEND Pediatrics
DX: L03.213 Periorbital cellulitis (principal); E46 Unspecified protein-calorie malnutrition; N40.0 Benign prostatic hyperplasia without lower urinary tract symptoms; Z20.822 Contact with and (suspected) exposure to COVID-19; E78.5 Hyperlipidemia, unspecified; Z68.20 Body mass index [BMI] 20.0-20.9, adult; M19.90 Unspecified osteoarthritis, unspecified site; Z88.8 Allergy status to other drugs, medicaments and biological substances; H10.9 Unspecified conjunctivitis; Z90.49 Acquired absence of other specified parts of digestive tract; R53.81 Other malaise
CPT/HCPCS: 10080